=== PATIENT | male | born 1985 | race Two or more races ===

== ENCOUNTER 2017-09-02 13:01 | Emergency (ER) | payer SELFPAY ==
[2017-09-02 13:05] VITALS: BP 180/100; PULSE 110; TEMP 97.8; BMI 38.0
[2017-09-02] MEDS ORDERED: KETOROLAC TROMETHAMINE 60 MG/2 ML VIAL IM ONE (13:59)
[2017-09-02] MEDS ORDERED: KETOROLAC TROMETHAMINE 60 MG/2 ML VIAL ONE (14:00)
--- NOTE | 2017-09-02 14:05 | PDOC ---
History of Present Illness - General Chief Complaint: Toothache Stated Complaint: TOOTHACHE Time Seen by Provider: 09/02/17 13:50 History Source: Patient Exam Limitations: No Limitations - History of Present Illness Initial Comments: 09/02/17 14:00 Patient is a 31-year-old male, no significant medical history presents with left upper first molar pain since yesterday. Has been taking Aleve without resolved of symptoms. There is no swelling to the face, no difficulty swallowing. Past Medical History: [Denies]. Allergies: No known allergies Medications: [None] Family History: Non-contributory Social History: Denies smoking, alcohol use, or IVDU Review of Systems GENERAL/CONSTITUTIONAL: [No fever or chills. No weakness. No weight change.] HEAD, EYES, EARS, NOSE AND THROAT: [No change in vision. No ear pain or discharge. No sore throat. Left upper 1st molar pain. ] CARDIOVASCULAR: [No chest pain or shortness of breath.] RESPIRATORY: [No cough, wheezing, or hemoptysis.] GASTROINTESTINAL: [No nausea, vomiting, diarrhea or constipation. No rectal bleeding.] GENITOURINARY: [No dysuria, frequency, or change in urination.] MUSCULOSKELETAL: [No joint or muscle swelling or pain. No neck or back pain.] SKIN AND BREASTS: [No rash or easy bruising.] NEUROLOGIC: [No headache, vertigo, loss of consciousness, or loss of sensation.] PSYCHIATRIC: [No depression or anxiety.] ENDOCRINE: [No increased thirst. No abnormal weight change.] HEMATOLOGIC/LYMPHATIC: [No anemia, easy bleeding, or history of blood clots.] ALLERGIC/IMMUNOLOGIC: [No hives or skin allergy. No latex allergy.] Physical Exam: GENERAL: [The patient is awake, alert, and fully oriented, in no acute distress. ] HEAD: [Normal with no signs of trauma.] EYES: [Pupils equal, round and reactive to light, extraocular movements intact, sclera anicteric, conjunctiva clear.] ENT: [Ears normal, nares patent, oropharynx clear without exudates. Moist mucous membranes. No uvula deviation. Ther eis no erythema, no visible dental abcess to the left upper first molar. Pain to the area with no edema. ] NECK: [Normal range of motion, supple without lymphadenopathy, JVD, or masses.] LUNGS: [Breath sounds equal, clear to auscultation bilaterally. No wheezes, and no crackles.] NEUROLOGICAL: [Cranial nerves II through XII grossly intact. Normal speech, normal gait.] SKIN: [Warm, Dry, normal turgor, no rashes or lesions noted.] Past History - Past Medical History Allergies/Adverse Reactions: Allergies Allergy/AdvReac Type Severity Reaction Status Date / Time codeine [Codeine] Allergy Verified 09/02/17 13:02 Penicillins Allergy Verified 09/02/17 13:02 Home Medications: Ambulatory Orders Clindamycin HCl 300 mg PO TID #30 capsule 09/02/17 Ibuprofen [Motrin -] 600 mg PO TID #20 tablet 09/02/17 COPD: No Diabetes: Yes Psychiatric Problems: Yes Other medical history: FATTY LIVER - Suicide/Smoking/Psychosocial Hx Smoking Status: Yes Smoking History: Current every day smoker Have you smoked in the past 12 months: Yes Number of Cigarettes Smoked Daily: 10 Information on smoking cessation initiated: Yes 'Breaking Loose' booklet given: 09/02/17 Hx Alcohol Use: No Drug/Substance Use Hx: No Substance Use Type: None *Physical Exam - Vital Signs Last Vital Signs Temp Pulse Resp BP Pulse Ox 97.8 F 110 H 18 180/100 100 09/02/17 13:02 09/02/17 13:02 09/02/17 13:02 09/02/17 13:02 09/02/17 13:02 Medical Decision Making - Medical Decision Making 09/02/17 14:04 A/P: Patient with dental pain, Toradol given with good result will DC patient on Motrin and clindamycin follow-up with dental, instructions given. If any increased pain, fever, facial swelling, difficulty swallowing, or any other concerns return to ER *DC/Admit/Observation/Transfer Diagnosis at time of Disposition: Tooth pain - Discharge Dispostion Disposition: HOME Condition at time of disposition: Stable Admit: No - Prescriptions Prescriptions: Clindamycin HCl 300 mg PO TID #30 capsule Ibuprofen [Motrin -] 600 mg PO TID #20 tablet - Referrals - Patient Instructions Printed Discharge Instructions: DI for Dental Pain Additional Instructions: Warm salt water gargles. Follow up with dental tomorrow. Please call [phone] to find out walking hours and address for dental clinic - Post Discharge Activity Forms/Work/School Notes: Back to Work
== END 2017-09-02 14:28 | disposition home or self-care (01) ==
LOC: JERFT 13:01
PROC: 3E0233Z Introduction of Anti-inflammatory into Muscle, Percutaneous Approach (ICD-10-PCS; principal; 2017-09-02)
DX: K08.89 Other specified disorders of teeth and supporting structures (principal); E11.9 Type 2 diabetes mellitus without complications; F17.210 Nicotine dependence, cigarettes, uncomplicated
CPT/HCPCS: 99281-25

== ENCOUNTER 2017-09-10 11:14 | Inpatient (IN) | payer BC, OTHER ==
[~2017-09-10 11:14] MED LIST: VANCOMYCIN 2,000 MG in DEXTROSE 5%-WATER - 500 ML IVPB SCH
--- NOTE | 2017-09-10 11:23 | PDOC ---
History of Present Illness <Juan Jesus - Last Filed: 09/10/17 17:42> - General History Source: Patient Exam Limitations: No Limitations - History of Present Illness Initial Comments: 09/10/17 11:34 The patient is a 31 year old male with history of DM, cigarette smoking, who presents to the ED complaining an area of progressively worsening pain, swelling , and redness to his right groin over approximately 4-5 days. Right groin pain is nonradiating or migrating, with no alleviating or exacerbating factors. No fever or chills. No nausea, vomiting, or diarrhea. No testicular pain. No dysuria or hematuria. The patient does endorse shaving in the affected area. <Josie Hernandez - Last Filed: 09/10/17 17:54> - General Chief Complaint: Abscess Boil Stated Complaint: LEG INFECTION Time Seen by Provider: 09/10/17 11:23 Past History - Past Medical History COPD: No Diabetes: Yes Psychiatric Problems: Yes - Suicide/Smoking/Psychosocial Hx Smoking Status: Yes Smoking History: Current every day smoker Have you smoked in the past 12 months: Yes Number of Cigarettes Smoked Daily: 10 'Breaking Loose' booklet given: 09/02/17 Hx Alcohol Use: No Drug/Substance Use Hx: No Substance Use Type: None <Juan Jesus - Last Filed: 09/10/17 17:42> <Josie Hernandez - Last Filed: 09/10/17 17:54> - Past Medical History Allergies/Adverse Reactions: Allergies Allergy/AdvReac Type Severity Reaction Status Date / Time codeine [Codeine] Allergy Verified 09/10/17 11:19 Penicillins Allergy Verified 09/10/17 11:19 Home Medications: Ambulatory Orders Clindamycin HCl 300 mg PO TID #30 capsule 09/02/17 Ibuprofen [Motrin -] 600 mg PO TID #20 tablet 09/02/17 Review of Systems - Review of Systems Able to Perform ROS?: Yes Comments:: 09/10/17 11:36 CONSTITUTIONAL: No fever, no chills, no fatigue EYES: No visual changes ENT: No ear pain, no sore throat CARDIOVASCULAR: No chest pain, no palpitations RESPIRATORY: No cough, no SOB GI: No abdominal pain, no nausea, no vomiting, no constipation, no diarrhea GENITOURINARY: No dysuria, no frequency, no hematuria. No testicular pain. MUSCULOSKELETAL: No backpain, no joint pain, no myalgias SKIN: +Pain, swelling, and redness to right groin. No rash. NEURO: No headache <Amparo Hernandezce - Last Filed: 09/10/17 17:54> *Physical Exam - Vital Signs Last Vital Signs Temp Pulse Resp BP Pulse Ox 98.4 F 82 18 143/97 97 09/10/17 11:19 09/10/17 11:19 09/10/17 11:19 09/10/17 11:19 09/10/17 11:19 - Physical Exam Comments: 09/10/17 11:40 CONSTITUTIONAL: Well-appearing; morbidly obese; in no apparent distress HEAD: Normocephalic; atraumatic EYES: PERRL; EOM intact ENMT: External appears normal; normal oropharynx NECK: Supple; non-tender; no cervical lymphadenopathy CARD: Normal S1, S2; no murmurs, rubs, or gallops RESP: Normal chest excursion with respiration; breath sounds clear and equal bilaterally; no wheezes, rhonchi, or rales ABD: Soft, non-distended; non-tender; no palpable organomegaly, no palpable hernias EXT: Normal ROM in all four extremities; non-tender to palpation; distal pulses intact SKIN: Approximately 8 cm x 10 cm area of erythema and induration to the medial aspect of proximal right thigh with 2 cm area of fluctuance immediately above inguinal vessels. No evidence of testicular or perineal involvement. NEURO: No focal neurological deficiencies. <Josie Hernandez - Last Filed: 09/10/17 17:54> ED Treatment Course - LABORATORY CBC & Chemistry Diagram: 09/10/17 12:56 09/10/17 13:15 <Juan Jesus - Last Filed: 09/10/17 17:42> - LABORATORY CBC & Chemistry Diagram: 09/10/17 12:56 09/10/17 13:15 - RADIOLOGY Radiograph Interpretation: 09/10/17 17:52 CT of RLE with contrast, read and reviewed by Dr. Madsen. Within the right upper thigh medially adjacent to the inferior aspect of the inguinal fold a nonspecific approximately 2.5 cm x 2.4 cm x 1.7 cm subcutaneous heterogenous low-attenuation is noted which could represent an abscess. <Josie Hernandez - Last Filed: 09/10/17 17:54> Medical Decision Making - Medical Decision Making 09/10/17 17:33 Patient is a 31-year-old male with poorly controlled diabetes who presents to the ER with significant cellulitis and an soft tissue abscess of the right proximal thigh. Extremity ultrasound shows a 3 x 2 x 3 cm fluid collection likely representing an abscess. CT of the right lower extremity reveals inflammatory changes within the soft tissue without evidence of air. I do not suspect forniers or necrotizing fasciitis. Patient received IV antibiotics and IND has been performed at bedside byDr. Mcpherson. pt alos recieved sq insulin. will admit for iv abx, glycemic control <Juan Jesus - Last Filed: 09/10/17 17:42> *DC/Admit/Observation/Transfer - Discharge Dispostion Admit: Yes - Attestations Physician Attestion: 09/10/17 17:33 The documentation was prepared by the scribe under my direct supervision. I have reviewed the documentation which correctly represents the findings, medical decision-making and critical action taken by me. <Juan Jesus - Last Filed: 09/10/17 17:42> - Attestations Scribe Attestion: 09/10/17 11:43 Documentation prepared by Josie Hernandez, acting as medical records tech for Juan Jesus MD. <Josie Hernandez - Last Filed: 09/10/17 17:54> Diagnosis at time of Disposition: Abscess of right thigh, Hyperglycemia Cellulitis Qualifiers: Site of cellulitis: other site Qualified Code(s): L03.818 - Cellulitis of other sites - Discharge Dispostion Condition at time of disposition: Fair
[2017-09-10] MEDS ORDERED: CLINDAMYCIN 600MG PREMIX IVPB 600 MG/50 ML BAG IVPB ONE ×2 (13:19→13:45)
[2017-09-10 13:37] LABS: BASO % 0.2 % (0-2.0); EOS % 1.4 % (0-4.5); HEMATOCRIT 44.4 % (35.4-49); HEMOGLOBIN 14.6 GM/dL (11.7-16.9); MCH 26.7 pg (25.7-33.7); MCHC 32.8 g/dl (32.0-35.9); MEAN CELL VOLUME 81.3 fl (80-96); MEAN PLT VOLUME 8.4 fl (7.5-11.1); MONO % 8.3 % (3.8-10.2); NEUT % 66.1 % (42.8-82.8); PLATELET COUNT 223 K/MM3 (134-434); RBC 5.46 M/mm3 (4.00-5.60); RDW 13.6 % (11.9-15.9); WHITE BLOOD COUNT 7.8 K/mm3 (4.0-10.0)
[2017-09-10 13:42] LABS: INR 0.91 (0.82-1.09); PROTHROMBIN TIME (PATIENT) 10.3 SEC (9.98-11.88)
[2017-09-10 13:46] LABS: ALBUMIN 3.5 g/dl (3.4-5.0); ANION GAP 12 (8-16); BLOOD UREA NITROGEN 9 mg/dL (7-18); CALCIUM 8.8 mg/dL (8.5-10.1); CHLORIDE 101 mmol/L (98-107); CO2 24 mmol/L (21-32); CREATININE 0.8 mg/dL (0.7-1.3); POTASSIUM 4.4 mmol/L (3.5-5.1); SGOT/AST 16 U/L (15-37); SGPT/ALT 52 U/L (12-78); SODIUM 137 mmol/L (136-145)
[2017-09-10 13:48] LABS: ALK PHOS 128 U/L (45-117); BILIRUBIN,TOTAL 0.6 mg/dL (0.2-1.0); TOT PROT 7.5 g/dl (6.4-8.2)
[2017-09-10 13:53] LABS: GLUCOSE,RANDOM 324 mg/dL (74-106)
[2017-09-10] MEDS ORDERED: traMADol HCL 50 MG TABLET PO ONE (14:54)
[2017-09-10] MEDS ORDERED: traMADol HCL 50 MG TABLET ONE (15:06)
[2017-09-10] MEDS ORDERED: INSULIN REGULAR HUMAN 100 UNITS/ML *VIAL SQ ONE (15:31)
[2017-09-10] MEDS ORDERED: INSULIN REGULAR HUMAN 100 UNITS/ML *VIAL ONE (16:24)
[2017-09-10] MEDS ORDERED: VANCOMYCIN 1 GRAM (PRE-DOCKED) 2,000 MG/500 ML BAG IVPB ONE (16:52)
[2017-09-10] MEDS ORDERED: LIDOCAINE 1%/EPI 1:100000 (20 ML MULTI DOSE VIAL) ONE (17:12)
[2017-09-10] MEDS ORDERED: ACETAMINOPHEN 325 MG TABLET (FP) PO PRN ×2 (17:48→19:18)
[2017-09-10] MEDS ORDERED: VANCOMYCIN 1,000 MG in DEXTROSE 5%-WATER - 250 ML IVPB ONE ×2 (18:09→18:10)
--- NOTE | 2017-09-10 18:21 | HP ---
CHIEF COMPLAINT: R groin swelling and pain PCP: none HISTORY OF PRESENT ILLNESS: 31M w/ hx of pilonidal abscess (2009), DM, morbid obesity, ?bipolar/depression, fatty liver dz, and a lung nodule, presenting with one week of right groin pain and swelling. Pt denies trauma to the area preceding his symptoms. He states that he shaved the area weeks ago. He reports that his symptoms progressed, and he developed surrounding erythema which prompted him to go to the ED. He denies fevers, chills, recent travel, sick contacts, n/v/d/c, dysuria, testicular pain , LE weakness, and numbness. Of note, pt presented to the hospital one week ago for severe left upper molar pain. He was given prescriptions for motrin and clindamycin and told to f/u with a dentist. Pt states that he only filled his motrin prescription, but not the clindamycin and never went to the dentist. He reports that his tooth pain has since resolved on its own. Pt reports that when he was in [facility] 6 months, a lung "nodule" was picked up, and he was told to follow it over time. ER course was notable for: (1) CT findings (2) CBC Recent Travel: none PAST MEDICAL HISTORY: pilonidal abscess (2010), DM, morbid obesity, ?bipolar/depression, fatty liver dz, and a lung nodule PAST SURGICAL HISTORY: none Social History: Smokin pack year hx Alcohol: former everyday drinker, now drinks socially on weekends Drugs: cannabis every few days Family History: Allergies codeine [Codeine] Allergy (Verified 09/10/17 11:19) Penicillins Allergy (Verified 09/10/17 11:19) HOME MEDICATIONS: Home Medications Medication Instructions Recorded Clindamycin HCl 300 mg PO TID #30 capsule 09/02/17 Ibuprofen [Motrin -] 600 mg PO TID #20 tablet 09/02/17 REVIEW OF SYSTEMS CONSTITUTIONAL: Absent: fever, chills, diaphoresis, generalized weakness, malaise, loss of appetite, weight change HEENT: Absent: rhinorrhea, nasal congestion, throat pain, throat swelling, difficulty swallowing, mouth swelling, ear pain, eye pain, visual changes CARDIOVASCULAR: Absent: chest pain, syncope, palpitations, irregular heart rate, lightheadedness , peripheral edema RESPIRATORY: Absent: cough, shortness of breath, dyspnea with exertion, orthopnea, wheezing, stridor, hemoptysis GASTROINTESTINAL: Absent: abdominal pain, abdominal distension, nausea, vomiting, diarrhea, constipation, melena, hematochezia GENITOURINARY: Absent: dysuria, frequency, urgency, hesitancy, hematuria, flank pain, genital pain MUSCULOSKELETAL: Absent: myalgia, arthralgia, joint swelling, back pain, neck pain SKIN: Absent: rash, itching, pallor Present: right thigh swelling, pain, and erythema HEMATOLOGIC/IMMUNOLOGIC: Absent: easy bleeding, easy bruising, lymphadenopathy, frequent infections ENDOCRINE: Absent: unexplained weight gain, unexplained weight loss, heat intolerance, cold intolerance NEUROLOGIC: Absent: headache, focal weakness or paresthesias, dizziness, unsteady gait, seizure, mental status changes, bladder or bowel incontinence PSYCHIATRIC: Absent: anxiety, depression, suicidal or homicidal ideation, hallucinations. PHYSICAL EXAMINATION Vital Signs - 24 hr 09/10/17 11:19 Temperature 98.4 F Pulse Rate 82 Respiratory 18 Rate Blood Pressure 143/97 O2 Sat by Pulse 97 Oximetry (%) GENERAL: middle aged male, awake, alert, and fully oriented, in no acute distress. HEENT: NC, AT, no swelling or erythema in mouth NECK: Normal range of motion, supple without lymphadenopathy, JVD, or masses. LUNGS: Breath sounds equal, clear to auscultation bilaterally. No wheezes, and no crackles. No accessory muscle use. HEART: Regular rate and rhythm, normal S1 and S2 without murmur, rub or gallop. ABDOMEN:obese, soft, nontender, not distended, normoactive bowel sounds, no guarding, no rebound, no masses. No hepatomegaly or splenomegaly. MUSCULOSKELETAL: Normal range of motion at all joints. No bony deformities or tenderness. No CVA tenderness. NEUROLOGICAL: Cranial nerves II-XII intact. Normal speech. Normal gait. SKIN: right medial upper thigh abscess with surrounding erythema, minimally tender to palpation Laboratory Results - last 24 hr 09/10/17 09/10/17 09/10/17 12:56 12:56 13:15 WBC 7.8 RBC 5.46 Hgb 14.6 Hct 44.4 MCV 81.3 MCH 26.7 MCHC 32.8 RDW 13.6 D Plt Count 223 MPV 8.4 Neutrophils % 66.1 Lymphocytes % 24.0 D Monocytes % 8.3 Eosinophils % 1.4 Basophils % 0.2 PT with INR 10.30 INR 0.91 Sodium 137 Potassium 4.4 Chloride 101 Carbon Dioxide 24 Anion Gap 12 BUN 9 D Creatinine 0.8 Creat Clearance w eGFR > 60 Random Glucose 324 H* D Calcium 8.8 Total Bilirubin 0.6 D AST 16 D ALT 52 D Alkaline Phosphatase 128 H D Total Protein 7.5 Albumin 3.5 US extremity: no pseudoaneurysm. complex subcutaneous mass in right thigh CT LE: 2.5 x 2.4 x 1.7 subcutaneous abscess ASSESSMENT/PLAN: 31M w/ hx of pilonidal abscess (2009), DM, morbid obesity, ?bipolar/depression, fatty liver dz, and a lung nodule presenting with R groin abscess and cellulitis , admitted for IV abx. #R groin abscess and cellulitis -no fever, no leukocytosis -IV clindamycin -surgery on board, s/p I&D, f/u recs -monitor for fever or leukocytosis -pain control with APAP, motrin, and tramadol -f/u Bcx, Wcx #DM -f/u a1c, lipid panel, TSH -ISS -BGM ACHS #morbid obesity -diabetic diet -RD consult #psych hx -f/u outpt #cigarette use -smoking cessation counseled -nicotine patch #FEN/ppx -po fluids -electrolytes wnl -diabetic diet -no GI ppx indicated -lovenox Case discussed with attending, Dr. Bhakta. -Zane De La Paz MD PGY1 Visit type - Emergency Visit Emergency Visit: Yes ED Registration Date: 09/10/17 Care time: The patient presented to the Emergency Department on the above date and was hospitalized for further evaluation of their emergent condition. - New Patient This patient is new to me today: Yes Date on this admission: 09/10/17 - Critical Care Critical Care patient: No Hospitalist Screening - Colonoscopy Questionnaire Colonoscopy Questionnaire: Colonoscopy Questionnaire - Patient: 50 - 75 years old and never had a screening colonoscopy: No History of colon or rectal polyps, or CA: No History of IBD, Crohn's disease or UC: No History of abdominal radiation therapy as a child: No - Relative: 1 with colon or rectal CA, or polyps at age 60 or younger: No Colon or rectal CA diagnosed at age 45 or younger: No Multiple relatives with colon or rectal CA: No - Outcome: Screening Result: Negative Screen
--- NOTE | 2017-09-10 18:26 | HP ---
CHIEF COMPLAINT: leg abscess PCP: None HISTORY OF PRESENT ILLNESS: The pt is a 31 year old male with a PMH of diabetes mellitus, bipolar disorder, depression, fatty liver who presented today complaining of pain and abscess in right groin that got worse over the past week. The pain was so significant that he decided to come to ED today. He denies injury, sick contacts. The pt denies fever, chills. Last week he visited our ED for tooth pain and was given Clindamycin but he never took it. He denies skin infections in the past. ER course was notable for: (1)Ct lower extremity (2)Clindamycin, Vancomycin, Levaquin (3)no fever PAST MEDICAL HISTORY: DM, bipolar disease, depression PAST SURGICAL HISTORY: None Social History: Smokin/2 pack for 20 years Alcohol:on weekends Drugs: marijuana every 3 days Family History: father: DMII, colon Ca mother: heart disease, DM Allergies codeine [Codeine] Allergy (Verified 09/10/17 11:19) Penicillins Allergy (Verified 09/10/17 11:19) HOME MEDICATIONS: Home Medications Medication Instructions Recorded Clindamycin HCl 300 mg PO TID #30 capsule 09/02/17 Ibuprofen [Motrin -] 600 mg PO TID #20 tablet 09/02/17 REVIEW OF SYSTEMS CONSTITUTIONAL: Absent: fever, chills, diaphoresis, generalized weakness, malaise, loss of appetite, weight change HEENT: Absent: rhinorrhea, nasal congestion, throat pain, throat swelling, difficulty swallowing, CARDIOVASCULAR: Absent: chest pain, syncope, palpitations, irregular heart rate, lightheadedness , peripheral edema RESPIRATORY: Absent: cough, shortness of breath, dyspnea with exertion, orthopnea, wheezing GASTROINTESTINAL: Absent: abdominal pain, abdominal distension, nausea, vomiting, diarrhea, constipation, GENITOURINARY: Absent: dysuria, frequency, urgency, hesitancy, hematuria, flank pain, genital pain MUSCULOSKELETAL: Absent: myalgia, arthralgia, joint swelling, back pain, neck pain SKIN:rash in groin Absent:, itching, pallor ENDOCRINE: Absent: unexplained weight gain, unexplained weight loss, heat intolerance, cold intolerance NEUROLOGIC: Absent: headache, focal weakness or paresthesias, dizziness, unsteady gait, PSYCHIATRIC: Absent: anxiety, depression PHYSICAL EXAMINATION Vital Signs - 24 hr 09/10/17 11:19 Temperature 98.4 F Pulse Rate 82 Respiratory 18 Rate Blood Pressure 143/97 O2 Sat by Pulse 97 Oximetry (%) GENERAL: Awake, alert, and fully oriented, in no acute distress. HEAD: Normal with no signs of trauma. EYES: Pupils equal, round and reactive to light, extraocular movements intact, sclera anicteric, conjunctiva clear. EARS, NOSE, THROAT: Ears normal, nares patent, oropharynx clear without exudates. Moist mucous membranes. NECK: Normal range of motion, supple without lymphadenopathy, JVD, or masses. LUNGS: Breath sounds equal, clear to auscultation bilaterally. No wheezes, and no crackles. No accessory muscle use. HEART: Regular rate and rhythm, normal S1 and S2 without murmur, rub or gallop. ABDOMEN: Obese, soft, nontender, not distended, normoactive bowel sounds, no guarding, no rebound, no masses. No hepatomegaly or splenomegaly. MUSCULOSKELETAL: Normal range of motion at all joints. No bony deformities or tenderness. UPPER EXTREMITIES: 2+ pulses, warm. No cyanosis. No clubbing. No peripheral edema. LOWER EXTREMITIES: 2+ pulses, warm. No calf tenderness. No peripheral edema. NEUROLOGICAL: Normal speech, no facial asymmetry. Gait not observed. PSYCHIATRIC: Cooperative. Good eye contact. Appropriate mood and affect. SKIN: Warm, dry, rash in medial side of right groin, 5 cm in diameter, no fluctuation, s/p drainage, dressing applied Laboratory Results - last 24 hr 09/10/17 09/10/17 09/10/17 12:56 12:56 13:15 WBC 7.8 RBC 5.46 Hgb 14.6 Hct 44.4 MCV 81.3 MCH 26.7 MCHC 32.8 RDW 13.6 D Plt Count 223 MPV 8.4 Neutrophils % 66.1 Lymphocytes % 24.0 D Monocytes % 8.3 Eosinophils % 1.4 Basophils % 0.2 PT with INR 10.30 INR 0.91 Sodium 137 Potassium 4.4 Chloride 101 Carbon Dioxide 24 Anion Gap 12 BUN 9 D Creatinine 0.8 Creat Clearance w eGFR > 60 Random Glucose 324 H* D Calcium 8.8 Total Bilirubin 0.6 D AST 16 D ALT 52 D Alkaline Phosphatase 128 H D Total Protein 7.5 Albumin 3.5 ASSESSMENT/PLAN: The pt is a 31 year old male with a PMH of diabetes mellitus, bipolar disorder, depression, fatty liver who presented today complaining of pain and abscess in right groin that got worse over the past week. He is admitted for cellulitis and abscess. Abscess in right groin with cellulitis: -s/p drainage in ED by Dr Mcpherson in emergency room -f/u blood cultures and wound cultures -Levaquin/Vanco and Clinda given in ED, will continue Clindamycin IV 600 mg Q6H -wound care Diabetes mellitus: -ISS ACHS -BGM ACHS -dietary consult H/o of bipolar disorder and depression: not on meds Fatty liver: -avoid toxic subst/alcohol -monitor LFTs Morbid obesity: -counseling Disposition: med surg Full note to follow Visit type - Emergency Visit Emergency Visit: Yes ED Registration Date: 09/10/17 Care time: The patient presented to the Emergency Department on the above date and was hospitalized for further evaluation of their emergent condition. - New Patient This patient is new to me today: Yes Date on this admission: 09/10/17 - Critical Care Critical Care patient: No
[2017-09-10] MEDS ORDERED: ACETAMINOPHEN 500 MG TABLET (FP) PO ONE (18:39)
--- NOTE | 2017-09-10 18:46 | PN ---
Teaching Attending Note Name of Resident: Zane De La Paz ATTENDING PHYSICIAN STATEMENT I saw and evaluated the patient. I reviewed the resident's note and discussed the case with the resident. I agree with the resident's findings and plan as documented. SUBJECTIVE:31 yo M with PMH DM, HTN and bipolar d/o presenting to the ER with R groin abscess. states he get frequent hard bumps in his groin which he feels in the shower which he typically squeezes to prevent from worsening. He felt the one in his R groin the other day but was unable to squeeze anything and when he looked at it in the mirror today and saw the size came to the ER. Had buttock abscess in the past requiring I&D. has not been complaint with his medications due to insurance issues. has went on strict diet and lost 100 lbs over the past year however due to personal stressors started eating poorly again and gained about half back. is not complaint with checking sugars due to lack of finances but when he checks it is low 100's. has not taken any medications for several months. came to the ER last week for toothache was given clindamycin and told to follow up with dentist which he has been unable to do. denies CP,SOB, fever, chills, N/V/C/D OBJECTIVE: Last Vital Signs Temp Pulse Resp BP Pulse Ox 98.4 F 82 18 143/97 97 09/10/17 11:19 09/10/17 11:19 09/10/17 11:19 09/10/17 11:19 09/10/17 11:19 General NAD CV S1 S2 RRR no murmur/rub/gallop Lungs CTA B/L no wheezing/rales/rhonchi Abdomen soft NT/ND obese Groin R side 2 cm abscess with fluctuance erythema +tender. with 5 cm surrounding erythema ASSESSMENT AND PLAN: 31 yo M with PMH DM, HTN and bipolar d/o presenting to the ER with R groin abscess. 1. R groin abcess- medicine admission. I&D by gen surgery in the ER. will need packing. received vanco/clinda/levaquin. will cont with clinda and levaquin. will hold on unasyn as pt has PCN allergy however pt states he thinks his reaction (lip swelling) was due to codeine. will f/u Cx. pain control 2. DM- uncontrolled due to non complaince due to financial reasons. check A1c. Iss, BGM. was taking combo pill which he can not afford. 3. HTN- controlled here. will monitor for now if elevates will consider starting medication 4. Morbid obesity- BMI 36.9. counselled on lifestyle changes, has been able to loose significant weight with dietary changes. encouraged he can do it again. 5. bipolar disorder- refuses to take medication at this time. no signs of manic episode 6. DVT ppx- lovenox
[2017-09-10] MEDS ORDERED: ACETAMINOPHEN 325 MG TABLET (FP) ONE (18:54)
--- NOTE | 2017-09-10 18:58 | CONSULT ---
Consult Consult Specialty:: General Surgery Referred by:: Dr. Jesus Reason for Consultation:: R groin abscess - History of Present Illness Chief Complaint: right groin swelling, redness, tenderness/pain History of Present Illness: 31yo obese diabetic M (not currently on any meds) with h/o HTN (not on meds for long time), bipolar d/o (no meds or tx currently), and previous I&D of an abscess on his lower back "between the cheeks," presents with right groin pain, swelling and redness, increasing over last 5-7 days. He was seen 8d ago in ER for left upper molar pain, and given referral to dental (he was unable to get through to make appt) and Rx for ibuprofen 600mg (which he got) and Clinda 300mg tid (which he could not afford). His tooth is till bothering him some, but he has not been able to follow up without insurance. Then, he noticed a fairly typical small nodular cyst/bump on his right groin, which he could feel in the shower, but was not going away or coming to a head. He put toothpaste on it to try and get it to do so, so it could drain, but it only got bigger and redder. He has shaved the area in the past, but not for about 3 weeks. He sometimes gets small bumps that occasionally he can squeeze or drain himself, which then go away, but as this got reddened and the redness spread, he decided to come to ER. He did not take anything for pain. Last po was 2pm in the ER, and he is hungry. No chills, fever, urinary complaints, constipation or diarrhea , n/v. It has not drained anything. It is very painful and tender. Last time he checked his sugar at home over a week ago, it was normal/in the lower hundreds/1 -teens to twenties range. He has recently started a new job, but does not have insurance or a primary physician at this time. He used to see Dr. Tom Chery, and followed with a psychiatrist in [place], but takes no medications daily now, and has not seen a doctor for a while. In the ER, he is afebrile, with wbc 7.8, glucose 324. Ultrasound of the right groin area showed no pseudoaneurysm and normal femoral vessels, but a subcutaneous collection consistent with probably abscess. Surgery is asked to assess for possible incision and drainage. ER has started IV antibiotics. - History Source History Provided By: Patient Limitations to Obtaining History: No Limitations - Past Medical History Cardio/Vascular: Yes: HTN Psych: Yes: Bipolar (no longer taking meds or seeing psych regularly) Endocrine: Yes: Diabetes Mellitus (not currently taking meds) - Past Surgical History Additional Surgical History: I&D abscess sacral area - Alcohol/Substance Use Hx Alcohol Use: Yes (about weekly, ~6 drinks/sitting) History of Substance Use: reports: Marijuana (every 2-3 days) - Smoking History Smoking history: Current every day smoker Have you smoked in the past 12 months: Yes Aproximately how many cigarettes per day: 10 (1/2-1ppd x 10yrs) - Social History ADL: Independent Occupation: salesman Home Medications - Allergies Allergies/Adverse Reactions: Allergies Allergy/AdvReac Type Severity Reaction Status Date / Time codeine [Codeine] Allergy Verified 09/10/17 11:19 Penicillins Allergy Verified 09/10/17 11:19 - Home Medications Home Medications: Ambulatory Orders Clindamycin HCl 300 mg PO TID #30 capsule 09/02/17 Ibuprofen [Motrin -] 600 mg PO TID #20 tablet 09/02/17 Home Medications (free text): Pt states he is NOT allergic to PCN - has had it before. Believes only allergic to codeine with lip/mouth swelling. Thinks he used Tramadol ok before. Pt never had Clinda Rx filled. Not really using ibuprofen either. No regular home meds at this time. Used to take Jentaduetto ( linagliptin/metformin) for DM few yrs ago. Used to take meds for BP and bipolar d/o, but stopped seeing psych and PMD when lost insurance. Family Disease History - Family Disease History Family Disease History: Other: Mother (pyoderma gangrenosum) Review of Systems - Review of Systems Constitutional: denies: Chills, Fever Eyes: reports: Blurred Vision (this morning experienced seeing a "fog" like it was "cloudy" in the room after showering, then it went away), Other (uses glasses for distance) HENT: reports: Toothache (left 1st molar (seen 8d ago in ER for this, has not f/ u with dental yet)). denies: Difficult Swallowing, Nasal Congestion, Throat Pain Neck: denies: Swollen Glands, Tenderness Cardiovascular: denies: Chest Pain, Palpitations Respiratory: denies: Cough, SOB Gastrointestinal: denies: Abdominal Pain, Constipation, Diarrhea, Nausea, Vomiting Genitourinary: denies: Burning, Dysuria, Testicular Pain, Testicular Swelling Musculoskeletal: reports: Other (hurt his right foot couple years ago at work, never got to see doctor for it). denies: Back Pain, Joint Pain, Muscle Pain Integumentary: reports: Erythema (R groin with hpi), Lump (gets occasional flares of cysts/lumps in perineal area, had one under arm once; R groin with hpi ) Neurological: denies: Dizziness, Headache, Unsteady Gait Endocrine: denies: Unexplained Weight Gain, Unexplained Weight Loss Psychiatric: reports: Anxiety (hx of, denies current problems), Depression (hx of, denies current problems) Physical Exam Vital Signs: Vital Signs Temperature 98.4 F 09/10/17 11:19 Pulse Rate 82 09/10/17 11:19 Respiratory Rate 18 09/10/17 11:19 Blood Pressure 143/97 09/10/17 11:19 O2 Sat by Pulse Oximetry (%) 97 09/10/17 11:19 Constitutional: Yes: No Distress, Calm, Obese Eyes: Yes: Conjunctiva Clear, EOM Intact HENT: Yes: Atraumatic, Normocephalic Neck: Yes: Supple, Trachea Midline Cardiovascular: Yes: Regular Rate and Rhythm. No: Murmur Respiratory: Yes: Regular, CTA Bilaterally Gastrointestinal: Yes: Normal Bowel Sounds, Soft, Abdomen, Obese. No: Tenderness ...Rectal Exam: Yes: Deferred Renal/: No: CVA Tenderness - Left, CVA Tenderness - Right, Scrotal Edema Musculoskeletal: No: Joint Stiffness, Joint Swelling Extremities: No: Cool, Cyanosis Edema: No Peripheral Pulses WNL: Yes Integumentary: Yes: Erythema (R groin/upper-inner thigh, border marked with pen ; minimal extension past inguinoscrotal crease/fold,), Other (away from R groin lesion - few small scattered nodular cysts noted in bilateral perineal area, none open or draining, no others with erythema or cellulitis) Wound/Incision: Yes: Open to air, Reddened (R groin), Other (R groin with fluctuant swelling, tender, reddened, epidermal erosion but no punctum or drainage, locally indurated, surrounding erythema extending onto upper/inner thigh but minimally across inguinoscrotal fold; area moist with sweat). No: Draining Neurological: Yes: Alert, Oriented. No: Unsteady Gait Psychiatric: Yes: Alert, Oriented Labs: CBC, BMP 09/10/17 12:56 09/10/17 13:15 INR, PTT INR 0.91 (0.82-1.09) 09/10/17 12:56 Imaging - Results Cat Scan: Image Reviewed (I personally reviewed images, showing small subcutaneous collection at right groin, above femoral vessels, but with clear tissue plane between the two; with changes of cellulitis locally and in subcutaneous tissues extending a bit inferiorly) Ultrasound: Report Reviewed (3 x 3 x 2 subcutaneous collection not adjacent to femoral vessels, no pseudoaneurysm, likely abscess), Image Reviewed Problem List - Problems (1) Abscess of right groin Assessment/Plan: right groin abscess with cellulitis admitted to medicine for IV antibiotics, glucose control ER started with Clinda 600mg, Vanco 2g, Levofloxacin 750mg ID to continue abx f/u culture results Pain meds prn - recommend tylenol/ibuprofen alternating, with tramadol for breakthrough and dressing changes Discussed with patient risks, benefits and alternatives of incision and drainage of right groin abscess, including but not limited to bleeding, infection, injury to nearby vessels, recurrence. Patient agreeable to procedure in ER under local anesthesia. I&D performed after hair removed from region - see separate procedure note, culture of pus sent to micro Pt tolerated well Will continue daily dressing changes with 1/2" iodoform packing Will need VNS arranged to continue daily packing changes on discharge, as patient cannot visualize area easily himself to do dressings. Instructions will be in discharge plan. Await cx results to guide abx treatment/complete course at d/c home. Thank you for the opportunity to participate in the care of this patient. Code(s): L02.214 - CUTANEOUS ABSCESS OF GROIN (2) Cellulitis of right groin Assessment/Plan: borders marked with pen, will follow for resolution IV antibiotics per ID, f/u cx result Code(s): L03.314 - CELLULITIS OF GROIN (3) Diabetes mellitus with hyperglycemia, without long-term current use of insulin Assessment/Plan: primary team to manage pt will need PMD referral for follow up on d/c SW/CM for lack of insurance he states he has a glucometer but not enough strips to check sugars daily Hb A1C pending Code(s): E11.65 - TYPE 2 DIABETES MELLITUS WITH HYPERGLYCEMIA Qualifiers: Diabetes mellitus type: type 2 Qualified Code(s): E11.65 - Type 2 diabetes mellitus with hyperglycemia (4) Tobacco dependence due to cigarettes Assessment/Plan: counseled to quit Code(s): F17.210 - NICOTINE DEPENDENCE, CIGARETTES, UNCOMPLICATED (5) Marijuana abuse Assessment/Plan: counseled to quit Code(s): F12.10 - CANNABIS ABUSE, UNCOMPLICATED (6) Bipolar disorder Assessment/Plan: advised patient to follow up with psychiatry outpatient after d/c discussed that this diagnosis does not generally just "go away" and may need ongoing evaluation and/or treatment Code(s): F31.9 - BIPOLAR DISORDER, UNSPECIFIED Qualifiers: Active/Remission status: in remission of unspecified degree Qualified Code( s): F31.70 - Bipolar disorder, currently in remission, most recent episode unspecified
--- NOTE | 2017-09-10 19:52 | PROC ---
Incision and Drainage Indication/Location: right groin abscess Risks and Benefits Explained: Yes Consent on Chart: No (verbal consent obtained) Betadine cleansed: Yes Anesthesia: 1% Lidocaine w/ Epi (17ml) Blade Size: 15 Drainage: pus cultured; also thin, old bloody drainage Irrigated with Normal Saline: No (cavity manually probed for loculations, cleaned out with gauze) Iodinated Packin/2 in Sterile Dressing Applied: Yes - Remarks Remarks: hair removed prior to prep from surrounding area; small ellipse of skin removed to delay wound closure, facilitate packing; covered with gauze and tape after packing
[2017-09-10] MEDS: traMADol HCL 50 MG TABLET PO PRN (22:49)
[2017-09-10] MEDS: CLINDAMYCIN 600MG PREMIX IVPB 600 MG/50 ML BAG IVPB SCH (22:49)
[2017-09-10] MEDS: INSULIN SLIDING SCALE (NOVOLOG) 1 VIAL SQ SCH (22:50)
[2017-09-11 00:10] VITALS: BMI 41.7
[2017-09-11] MEDS: CLINDAMYCIN 600MG PREMIX IVPB 600 MG/50 ML BAG IVPB SCH ×4 (04:08→21:12)
[2017-09-11] MEDS: IBUPROFEN 600 MG TABLET (FP) PO PRN (05:14)
[2017-09-11] MEDS: INSULIN SLIDING SCALE (NOVOLOG) 1 VIAL SQ SCH ×4 (06:27→21:46)
[2017-09-11 08:31] LABS: BASO % 0.4 % (0-2.0); EOS % 1.5 % (0-4.5); HEMATOCRIT 42.7 % (35.4-49); HEMOGLOBIN 14.2 GM/dL (11.7-16.9); LYMPH % 25.3 % (8-40); MCHC 33.2 g/dl (32.0-35.9); MEAN CELL VOLUME 81.6 fl (80-96); MEAN PLT VOLUME 8.5 fl (7.5-11.1); MONO % 8.8 % (3.8-10.2); PLATELET COUNT 203 K/MM3 (134-434); RBC 5.23 M/mm3 (4.00-5.60); WHITE BLOOD COUNT 7.3 K/mm3 (4.0-10.0)
[2017-09-11 09:02] LABS: ALBUMIN 3.1 g/dl (3.4-5.0); ANION GAP 9 (8-16); BILIRUBIN,TOTAL 0.6 mg/dL (0.2-1.0); BLOOD UREA NITROGEN 12 mg/dL (7-18); CALCIUM 8.1 mg/dL (8.5-10.1); CHLORIDE 104 mmol/L (98-107); CO2 24 mmol/L (21-32); CREATININE 0.7 mg/dL (0.7-1.3); GLUCOSE,RANDOM 258 mg/dL (74-106); MAGNESIUM 1.8 mg/dL (1.8-2.4); PHOSPHOROUS 3.7 mg/dL (2.5-4.9); POTASSIUM 4.1 mmol/L (3.5-5.1); SGOT/AST 14 U/L (15-37); SGPT/ALT 42 U/L (12-78); SODIUM 137 mmol/L (136-145); TOT PROT 6.7 g/dl (6.4-8.2)
[2017-09-11 09:03] LABS: ALK PHOS 104 U/L (45-117)
[2017-09-11] MEDS: traMADol HCL 50 MG TABLET PO PRN (09:06)
[2017-09-11] MEDS: NICOTINE 14 MG/24 HOURS TOPICAL PATCH TD SCH (09:36)
[2017-09-11] MEDS: ENOXAPARIN NA (PORCINE) 40 MG/0.4 ML DISP.SYRIN SQ SCH (09:36)
--- NOTE | 2017-09-11 11:16 | PN ---
Progress Note (short form) - Note Progress Note: Pt s/p I&D R groin abscess, with uncontrolled diabetes type 2. On Clindamycin per hospitalist team. Getting pain medicine prn, had Tramadol just over an hour ago. Pain is manageable, also using cold pack over area with good effect. Tolerating diabetic diet. No specific complaints. HbA1C 11. GS/Cx from wound still pending. Got Levofloxacin at 6pm last night. Vital Signs Period Temp Pulse Resp BP Sys/Holder Pulse Ox Last 24 Hr 97.9 F-98.9 F 71-92 18-18 136-146/78-97 97-100 PE: A&O obese, no distress no edema or cyanosis R groin wound with dressing soaked with serosang drainage removed - packing removed from wound cavity clean, red base, slight oozing of blood, no purulence repacked with 1/2" iodoform surrounding erythema still about at ink border but faded to faint pink area is tender covered with gauze and tape CBC, BMP 09/11/17 07:47 09/11/17 07:47 Micro still pending A/P: POD1 s/p I&D R groin abscess in uncontrolled diabetic wound trolley cleaner, cellulitis improving on antibiotics needs full spectrum abx coverage including gram negatives recommend Clinda 900mg q8H and Levo or Cipro to cover for diabetic/ polymicrobial infection discussed with Dr. De La Paz of primary team recommend ID consult pt advised to take tylenol and ibuprofen alternating, use tramadol for breakthrough and before dressing changes only will need VNS on discharge to continue daily wound care with packing changes - see d/c plan for details may be able to use saline-dampened 2x2 gauze instead of packing ribbon by the time of discharge will update as needed continue daily dressings f/u culture Problem List - Problems (1) Abscess of right groin Code(s): L02.214 - CUTANEOUS ABSCESS OF GROIN (2) Cellulitis of right groin Code(s): L03.314 - CELLULITIS OF GROIN (3) Diabetes mellitus with hyperglycemia, without long-term current use of insulin Code(s): E11.65 - TYPE 2 DIABETES MELLITUS WITH HYPERGLYCEMIA Qualifiers: Diabetes mellitus type: type 2 Qualified Code(s): E11.65 - Type 2 diabetes mellitus with hyperglycemia (4) Tobacco dependence due to cigarettes Code(s): F17.210 - NICOTINE DEPENDENCE, CIGARETTES, UNCOMPLICATED (5) Marijuana abuse Code(s): F12.10 - CANNABIS ABUSE, UNCOMPLICATED (6) Bipolar disorder Code(s): F31.9 - BIPOLAR DISORDER, UNSPECIFIED Qualifiers: Active/Remission status: in remission of unspecified degree Qualified Code( s): F31.70 - Bipolar disorder, currently in remission, most recent episode unspecified
--- NOTE | 2017-09-11 13:49 | PN ---
Teaching Attending Note Name of Resident: Zane De La Paz ATTENDING PHYSICIAN STATEMENT I saw and evaluated the patient. I reviewed the resident's note and discussed the case with the resident. I agree with the resident's findings and plan as documented. SUBJECTIVE:pain is improved. denies CP, SOB, fever, chills, N/V/C/D OBJECTIVE: Last Vital Signs Temp Pulse Resp BP Pulse Ox 98.1 F 76 18 135/85 99 09/11/17 13:37 09/11/17 13:37 09/11/17 13:37 09/11/17 13:37 09/10/17 23:52 General NAD Groin R side dressing c/d/i. minimal erythema noted surrounding the dressing, reduced signficantly from demarcated line. no tenderness, no swelling ASSESSMENT AND PLAN: 31 yo M with PMH DM, HTN and bipolar d/o presenting to the ER with R groin abscess. 1. R groin abscess- significant improvement. on Clinda and levaquin day 2. dressing changed by surgeron. cont wound care management. f/u Cx. pain control 2. DM- A1c 11.3. will call [facility] for med list that is affordable for pt that he can afford. cont iss for now. u 3. HTN- remains normotensive off medication 4. Morbid obesity- BMI 36.9. counselled on lifestyle changes, has been able to loose significant weight with dietary changes. encouraged he can do it again. 5. bipolar disorder- refuses to take medication at this time. no signs of manic episode 6. DVT ppx- lovenox 7. d/c planning tomorrow once c&s result
--- NOTE | 2017-09-11 16:08 | PN ---
Physical Exam: SUBJECTIVE: Patient seen and examined No acute events overnight. Pt states that his pain is well controlled. No other complaints. OBJECTIVE: Vital Signs Period Temp Pulse Resp BP Sys/Holder Pulse Ox Last 24 Hr 97.9 F-98.9 F 65-92 18-18 115-146/57-85 99-100 GENERAL: middle aged male, awake, alert, and fully oriented, in no acute distress. HEENT: NC, AT, no swelling or erythema in mouth NECK: Normal range of motion, supple without lymphadenopathy, JVD, or masses. LUNGS: Breath sounds equal, clear to auscultation bilaterally. No wheezes, and no crackles. No accessory muscle use. HEART: Regular rate and rhythm, normal S1 and S2 without murmur, rub or gallop. ABDOMEN:obese, soft, nontender, not distended, normoactive bowel sounds, no guarding, no rebound, no masses. No hepatomegaly or splenomegaly. MUSCULOSKELETAL: Normal range of motion at all joints. No bony deformities or tenderness. No CVA tenderness. NEUROLOGICAL: Cranial nerves II-XII intact. Normal speech. Normal gait. SKIN: bandage overlying right medial upper thigh abscess, surrounding erythema has decreased significantly, minimally tender to palpation Laboratory Results - last 24 hr 09/10/17 09/10/17 09/11/17 12:00 22:44 06:06 WBC RBC Hgb Hct MCV MCH MCHC RDW Plt Count MPV Neutrophils % Lymphocytes % Monocytes % Eosinophils % Basophils % Sodium Potassium Chloride Carbon Dioxide Anion Gap BUN Creatinine Creat Clearance w eGFR POC Glucometer 267 276 Random Glucose Hemoglobin A1c % 11.3 H Calcium Phosphorus Magnesium Total Bilirubin AST ALT Alkaline Phosphatase Total Protein Albumin Triglycerides Cholesterol Total LDL Cholesterol HDL Cholesterol TSH 09/11/17 09/11/17 09/11/17 07:47 07:47 07:47 WBC 7.3 RBC 5.23 Hgb 14.2 Hct 42.7 MCV 81.6 MCH 27.0 MCHC 33.2 RDW 14.0 Plt Count 203 MPV 8.5 Neutrophils % 64.0 Lymphocytes % 25.3 Monocytes % 8.8 Eosinophils % 1.5 Basophils % 0.4 Sodium 137 Potassium 4.1 Chloride 104 Carbon Dioxide 24 Anion Gap 9 BUN 12 D Creatinine 0.7 Creat Clearance w eGFR > 60 POC Glucometer Random Glucose 258 H D Hemoglobin A1c % Calcium 8.1 L Phosphorus 3.7 Magnesium 1.8 Total Bilirubin 0.6 AST 14 L ALT 42 Alkaline Phosphatase 104 Total Protein 6.7 Albumin 3.1 L Triglycerides 263 H Cholesterol 183 Total LDL Cholesterol 110 H HDL Cholesterol 36 L TSH 0.66 09/11/17 11:09 WBC RBC Hgb Hct MCV MCH MCHC RDW Plt Count MPV Neutrophils % Lymphocytes % Monocytes % Eosinophils % Basophils % Sodium Potassium Chloride Carbon Dioxide Anion Gap BUN Creatinine Creat Clearance w eGFR POC Glucometer 288 Random Glucose Hemoglobin A1c % Calcium Phosphorus Magnesium Total Bilirubin AST ALT Alkaline Phosphatase Total Protein Albumin Triglycerides Cholesterol Total LDL Cholesterol HDL Cholesterol TSH Active Medications Generic Name Dose Route Start Last Admin Trade Name Freq PRN Reason Stop Dose Admin Acetaminophen 650 mg 09/10/17 19:18 Tylenol - PO Q6H PRN PAIN LEVEL 1 - 3 Enoxaparin Sodium 40 mg 09/11/17 10:00 09/11/17 09:36 Lovenox - SQ 40 mg DAILY AMY Administration Clindamycin Phosphate 600 mg in 50 mls @ 100 mls/hr 09/10/17 21:00 09/11/17 15:11 Cleocin 600 Mg Premix Ivpb - IVPB 100 mls/hr Q6H-IV AMY Administration Levofloxacin 500 mg in 100 mls @ 100 mls/hr 09/11/17 18:00 Levaquin 500 Mg Premixed Ivpb - IVPB DAILY AMY Ibuprofen 600 mg 09/10/17 19:17 09/11/17 05:14 Motrin - PO 600 mg Q6H PRN Administration PAIN LEVEL 4 - 6 Insulin Aspart 1 vial 09/10/17 22:00 09/11/17 11:18 Novolog Vial Sliding Scale - SQ 4 units ACHS AMY Administration Protocol Nicotine 14 mg 09/11/17 10:00 09/11/17 09:36 Nicoderm Patch - TD 14 mg DAILY AMY Administration Tramadol HCl 50 mg 09/10/17 19:18 09/11/17 09:06 Ultram - PO 50 mg Q12H PRN Administration PAIN LEVEL 7 - 10 ASSESSMENT/PLAN: 31M w/ hx of pilonidal abscess (2009), DM, morbid obesity, ?bipolar/depression, fatty liver dz, and a lung nodule presenting with R groin abscess and cellulitis , admitted for IV abx. #R groin abscess and cellulitis- improving -no fever, no leukocytosis -IV clindamycin and levaquin -surgery on board, s/p I&D, f/u recs -monitor for fever or leukocytosis -pain control with APAP, motrin, and tramadol -f/u Bcx, Wcx #DM -a1c: 11.3 -lipid panel: LDL of 110, triglycerides of 263 -TSH: pending -ISS -BGM ACHS #morbid obesity -diabetic diet -RD consult #psych hx -f/u outpt #cigarette use -smoking cessation counseled -nicotine patch #FEN/ppx -po fluids -electrolytes wnl -diabetic diet -no GI ppx indicated -lovenox #dispo -pending cultures Case discussed with attending, Dr. Bhakta. -Zane De La Paz MD PGY1 Visit type - Emergency Visit Emergency Visit: Yes ED Registration Date: 09/10/17 Care time: The patient presented to the Emergency Department on the above date and was hospitalized for further evaluation of their emergent condition. - New Patient This patient is new to me today: No - Critical Care Critical Care patient: No
[2017-09-12] MEDS: traMADol HCL 50 MG TABLET PO PRN ×2 (02:13→16:24)
[2017-09-12] MEDS: CLINDAMYCIN 600MG PREMIX IVPB 600 MG/50 ML BAG IVPB SCH ×4 (02:30→22:00)
[2017-09-12] MEDS: INSULIN SLIDING SCALE (NOVOLOG) 1 VIAL SQ SCH ×4 (06:00→22:04)
[2017-09-12] MEDS ORDERED: INSULIN (NOVOLOG) ASPART 100 UNITS/ML 10ML VIAL ONE ×2 (07:24→20:41)
[2017-09-12 08:24] LABS: BASO % 0.6 % (0-2.0); EOS % 1.8 % (0-4.5); HEMATOCRIT 43.4 % (35.4-49); HEMOGLOBIN 14.6 GM/dL (11.7-16.9); LYMPH % 31.7 % (8-40); MCH 27.2 pg (25.7-33.7); MCHC 33.5 g/dl (32.0-35.9); MEAN CELL VOLUME 81.1 fl (80-96); MEAN PLT VOLUME 8.2 fl (7.5-11.1); MONO % 9.3 % (3.8-10.2); NEUT % 56.6 % (42.8-82.8); PLATELET COUNT 208 K/MM3 (134-434); RBC 5.36 M/mm3 (4.00-5.60); RDW 13.7 % (11.9-15.9); WHITE BLOOD COUNT 6.4 K/mm3 (4.0-10.0)
[2017-09-12] MEDS: IBUPROFEN 600 MG TABLET (FP) PO PRN (09:06)
[2017-09-12] MEDS: NICOTINE 14 MG/24 HOURS TOPICAL PATCH TD SCH (10:46)
[2017-09-12] MEDS: ENOXAPARIN NA (PORCINE) 40 MG/0.4 ML DISP.SYRIN SQ SCH (10:46)
[2017-09-12] MEDS ORDERED: IBUPROFEN 600 MG TABLET (FP) PO SCH (12:00)
--- NOTE | 2017-09-12 12:09 | PN ---
Teaching Attending Note Name of Resident: Zane De La Paz ATTENDING PHYSICIAN STATEMENT I saw and evaluated the patient. I reviewed the resident's note and discussed the case with the resident. I agree with the resident's findings and plan as documented. SUBJECTIVE:stating pain has increased in the area making it difficult to ambulate. states pain is relieved with pain medication. denies Cp, SOb, fever, chills, N/V/C/D OBJECTIVE: Last Vital Signs Temp Pulse Resp BP Pulse Ox 98.0 F 71 18 122/82 98 09/12/17 06:00 09/12/17 06:00 09/12/17 06:00 09/12/17 06:00 09/11/17 21:00 General NAD Groin R surgical incision with packing. surrounding erythema slightly past the marked area medially however very faint overall. no tenderness over this area. extreme tenderness more medial in the thigh, no discrete lesion appreciated. ASSESSMENT AND PLAN: 31 yo M with PMH DM, HTN and bipolar d/o presenting to the ER with R groin abscess. 1. R groin abscess- s/p I&D 09/10. appears improved however pain on the medial thigh. unclear if another abscess is forming. nothing appreaciated in this aread on initial CT or US. will repeat US to evaluate. cont Clinda and levaquin day 3. will make motrin RTC. encouraged to request pain medications when needed as pt only requesting minimal times. f/u official Cx report. 2. DM- A1c 11.3. metformin and glyburide available on [email or web address] $4 list. will start glyburide today and monitor for improved control. will start metformin tomorrow since received contrast. informed him he will liekly require further medication adjustment. agreed he is able to afford medications at this pérez. 3. HTN- remains normotensive off medication 4. Morbid obesity- BMI 36.9. counselled on lifestyle changes, has been able to loose significant weight with dietary changes. encouraged he can do it again. 5. bipolar disorder- refuses to take medication at this time. no signs of manic episode 6. DVT ppx- lovenox
--- NOTE | 2017-09-12 12:43 | PN ---
Physical Exam: SUBJECTIVE: Patient seen and examined No acute events overnight. Pt reports increased pain at rest and during ambulation. He denies fevers, chills, SOB, chest pain, abdominal pain, n/v/d/c, and dysuria. OBJECTIVE: Vital Signs Period Temp Pulse Resp BP Sys/Holder Pulse Ox Last 24 Hr 98.0 F-98.2 F 71-80 18-18 122-148/82-93 98 GENERAL: middle aged male, awake, alert, and fully oriented, in no acute distress. HEENT: NC, AT, no swelling or erythema in mouth NECK: Normal range of motion, supple without lymphadenopathy, JVD, or masses. LUNGS: Breath sounds equal, clear to auscultation bilaterally. No wheezes, and no crackles. No accessory muscle use. HEART: Regular rate and rhythm, normal S1 and S2 without murmur, rub or gallop. ABDOMEN:obese, soft, nontender, not distended, normoactive bowel sounds, no guarding, no rebound, no masses. No hepatomegaly or splenomegaly. MUSCULOSKELETAL: Normal range of motion at all joints. No bony deformities or tenderness. No CVA tenderness. NEUROLOGICAL: Cranial nerves II-XII intact. Normal speech. Normal gait. SKIN: bandage overlying right medial upper thigh abscess, surrounding erythema has increased past line of demarcation, minimally tender to palpation Laboratory Results - last 24 hr 09/11/17 09/11/17 09/12/17 16:45 21:42 05:29 WBC RBC Hgb Hct MCV MCH MCHC RDW Plt Count MPV Neutrophils % Lymphocytes % Monocytes % Eosinophils % Basophils % POC Glucometer 288 281 254 09/12/17 09/12/17 07:15 11:35 WBC 6.4 RBC 5.36 Hgb 14.6 Hct 43.4 MCV 81.1 MCH 27.2 MCHC 33.5 RDW 13.7 Plt Count 208 MPV 8.2 Neutrophils % 56.6 Lymphocytes % 31.7 D Monocytes % 9.3 Eosinophils % 1.8 Basophils % 0.6 POC Glucometer 324 Active Medications Generic Name Dose Route Start Last Admin Trade Name Freq PRN Reason Stop Dose Admin Acetaminophen 650 mg 09/10/17 19:18 09/11/17 16:42 Tylenol - PO 650 mg Q6H PRN Administration PAIN LEVEL 1 - 3 Enoxaparin Sodium 40 mg 09/11/17 10:00 09/12/17 10:46 Lovenox - SQ 40 mg DAILY AMY Administration Glyburide 5 mg 09/12/17 12:45 Diabeta - PO 09/12/17 12:46 ONCE ONE Glyburide 5 mg 09/13/17 07:00 Diabeta - PO DAILY@0700 AMY Clindamycin Phosphate 600 mg in 50 mls @ 100 mls/hr 09/10/17 21:00 09/12/17 09:08 Cleocin 600 Mg Premix Ivpb - IVPB 100 mls/hr Q6H-IV AMY Administration Levofloxacin 500 mg in 100 mls @ 100 mls/hr 09/11/17 18:00 09/11/17 18:14 Levaquin 500 Mg Premixed Ivpb - IVPB 100 mls/hr DAILY AMY Administration Ibuprofen 600 mg 09/12/17 12:00 Motrin - PO Q6HPO AMY Insulin Aspart 1 vial 09/10/17 22:00 09/12/17 11:44 Novolog Vial Sliding Scale - SQ 6 units ACHS AMY Administration Protocol Nicotine 14 mg 09/11/17 10:00 09/12/17 10:46 Nicoderm Patch - TD 14 mg DAILY AMY Administration Tramadol HCl 50 mg 09/10/17 19:18 09/12/17 02:13 Ultram - PO 50 mg Q12H PRN Administration PAIN LEVEL 7 - 10 ASSESSMENT/PLAN: 31M w/ hx of pilonidal abscess (2009), DM, morbid obesity, ?bipolar/depression, fatty liver dz, and a lung nodule presenting with R groin abscess and cellulitis , admitted for IV abx. #R groin abscess and cellulitis- worsening -no fever, no leukocytosis -continue IV clindamycin and levaquin -surgery on board, s/p I&D, recs appreciated -monitor for fever or leukocytosis -pain control with APAP, motrin, and tramadol. motrin changed to standing -Bcx: Nx24h -Wcx: strep agalactiae, awaiting sensitivities -f/u US extremity for possible area of undrained abscess #DM -a1c: 11.3 -lipid panel: LDL of 110, triglycerides of 263 -TSH: 0.66, normal -ISS, required 14U in total over last 24 hours -BGM ACHS -started levemir 7U HS #morbid obesity -diabetic diet -RD consult #psych hx -f/u outpt #cigarette use -smoking cessation counseled -nicotine patch #FEN/ppx -po fluids -electrolytes wnl -diabetic diet -no GI ppx indicated -lovenox #dispo -pending culture sensitivities Case discussed with attending, Dr. Bhakta. -Zane De La Paz MD PGY1 Visit type - Emergency Visit Emergency Visit: Yes ED Registration Date: 09/10/17 Care time: The patient presented to the Emergency Department on the above date and was hospitalized for further evaluation of their emergent condition. - New Patient This patient is new to me today: No - Critical Care Critical Care patient: No - Discharge Referral Referred to [facility] Med P.C.: No
[2017-09-12] MEDS ORDERED: glyBURIDE 5 MG TABLET (UD) PO ONE (12:45)
[2017-09-12] MEDS ORDERED: hydrOXYzine HCL 25 MG TABLET (FP) PO ONE (13:39)
[2017-09-12] MEDS ORDERED: PT OWN MED DRAWER 7, Y5N ONE (14:06)
--- NOTE | 2017-09-12 16:28 | PN ---
Progress Note, Physician History of Present Illness: 31yo male PMH uncontrolled diabetes type 2 s/p I&D of right groin abscess. On Clindamycin per hospitalist team. Pain is manageable, but he is umcomfortable during dressing changes. - Current Medication List Current Medications: Active Medications Acetaminophen (Tylenol -) 650 mg PO Q6H PRN PRN Reason: PAIN LEVEL 1 - 3 Last Admin: 09/11/17 16:42 Dose: 650 mg Enoxaparin Sodium (Lovenox -) 40 mg SQ DAILY [facility] Last Admin: 09/12/17 10:46 Dose: 40 mg Glyburide (Diabeta -) 5 mg PO DAILY@0700 [facility] Clindamycin Phosphate (Cleocin 600 Mg Premix Ivpb -) 600 mg in 50 mls @ 100 mls /hr IVPB Q6H-IV [facility] Last Admin: 09/12/17 09:08 Dose: 100 mls/hr Levofloxacin (Levaquin 500 Mg Premixed Ivpb -) 500 mg in 100 mls @ 100 mls/hr IVPB DAILY [facility] Last Admin: 09/12/17 16:11 Dose: 100 mls/hr Ibuprofen (Motrin -) 600 mg PO Q6HPO [facility] Insulin Aspart (Novolog Vial Sliding Scale -) 1 vial SQ ACHS [facility] PRN Reason: Protocol Last Admin: 09/12/17 11:44 Dose: 6 units Nicotine (Nicoderm Patch -) 14 mg TD DAILY [facility] Last Admin: 09/12/17 10:46 Dose: 14 mg Tramadol HCl (Ultram -) 50 mg PO Q12H PRN PRN Reason: PAIN LEVEL 7 - 10 Last Admin: 09/12/17 02:13 Dose: 50 mg - Objective Vital Signs: Vital Signs Temperature 98.1 F 09/12/17 14:30 Pulse Rate 79 09/12/17 14:30 Respiratory Rate 18 09/12/17 14:30 Blood Pressure 130/81 09/12/17 14:30 O2 Sat by Pulse Oximetry (%) 97 09/12/17 09:00 Vital Signs Period Temp Pulse Resp BP Sys/Holder Pulse Ox Last 24 Hr 98.0 F-98.5 F 71-80 18-18 111-148/67-93 97-98 Constitutional: Yes: No Distress, Calm, Obese Eyes: Yes: Conjunctiva Clear, EOM Intact HENT: Yes: Atraumatic, Normocephalic Neck: Yes: Supple, Trachea Midline Cardiovascular: Yes: Regular Rate and Rhythm, S1, S2 Respiratory: Yes: Regular, CTA Bilaterally Gastrointestinal: Yes: Normal Bowel Sounds, Soft, Abdomen, Obese. No: Tenderness ...Rectal Exam: Yes: Deferred Extremities: No: Cool, Cyanosis Peripheral Pulses WNL: Yes Peripheral Pulses: Right Femoral: 2+ Wound/Incision: Yes: Dressing Removed (replaced with 1/2 inch packing and), Unapproximated (1.5cm circular crater anteromedial thigh. 1cm deep.). No: Draining, Reddened, Bleeding Neurological: Yes: Alert, Oriented Psychiatric: Yes: Alert, Oriented Labs: CBC, BMP 09/12/17 07:15 09/11/17 07:47 INR, PTT INR 0.91 (0.82-1.09) 09/10/17 12:56 Problem List - Problems (1) Abscess of right groin Assessment/Plan: 31yo male with PMH DM type 2 POD2 s/p I&D if right upper thigh abscess the wound is clean. WBC 6.4 (56.6%N) Dressing change daily Continue IV antibiotics premedicated for dressing change Code(s): L02.214 - CUTANEOUS ABSCESS OF GROIN (2) Abscess of right thigh Code(s): L02.415 - CUTANEOUS ABSCESS OF RIGHT LOWER LIMB (3) Diabetes mellitus with hyperglycemia, without long-term current use of insulin Code(s): E11.65 - TYPE 2 DIABETES MELLITUS WITH HYPERGLYCEMIA Qualifiers: Diabetes mellitus type: type 2 Qualified Code(s): E11.65 - Type 2 diabetes mellitus with hyperglycemia (4) Hyperglycemia Code(s): R73.9 - HYPERGLYCEMIA, UNSPECIFIED (5) Bipolar disorder Code(s): F31.9 - BIPOLAR DISORDER, UNSPECIFIED Qualifiers: Active/Remission status: in remission of unspecified degree Qualified Code( s): F31.70 - Bipolar disorder, currently in remission, most recent episode unspecified
[2017-09-12] MEDS: IBUPROFEN 600 MG TABLET (FP) PO SCH ×2 (19:05→23:06)
[2017-09-12] MEDS ORDERED: INSULIN DETEMIR 100 UNITS/ML MDV SQ SCH (22:00)
[2017-09-13] MEDS: CLINDAMYCIN 600MG PREMIX IVPB 600 MG/50 ML BAG IVPB SCH ×3 (02:33→14:21)
[2017-09-13] MEDS ORDERED: PT OWN MED DRAWER 7, Y5N ONE (06:20)
[2017-09-13] MEDS: IBUPROFEN 600 MG TABLET (FP) PO SCH ×2 (06:31→13:08)
[2017-09-13] MEDS: INSULIN SLIDING SCALE (NOVOLOG) 1 VIAL SQ SCH ×2 (06:32→12:09)
[2017-09-13] MEDS ORDERED: glyBURIDE 5 MG TABLET (UD) PO SCH (07:00)
[2017-09-13] MEDS: ENOXAPARIN NA (PORCINE) 40 MG/0.4 ML DISP.SYRIN SQ SCH (09:19)
[2017-09-13] MEDS: NICOTINE 14 MG/24 HOURS TOPICAL PATCH TD SCH (09:19)
[2017-09-13] MEDS: traMADol HCL 50 MG TABLET PO PRN (09:25)
--- NOTE | 2017-09-13 10:38 | PN ---
Progress Note (short form) - Note Progress Note: states pain improved. only has pain during dressing changes. denies CP, SOB, fever, chills, N/V/C/D Current Medications Generic Name Dose Route Start Last Admin Trade Name Freq PRN Reason Stop Dose Admin Acetaminophen 650 mg 09/10/17 19:18 09/11/17 16:42 Tylenol - PO 650 mg Q6H PRN Administration PAIN LEVEL 1 - 3 Enoxaparin Sodium 40 mg 09/11/17 10:00 09/13/17 09:19 Lovenox - SQ 40 mg DAILY AMY Administration Glyburide 5 mg 09/13/17 07:00 09/13/17 06:29 Diabeta - PO 5 mg DAILY@0700 AMY Administration Clindamycin Phosphate 600 mg in 50 mls @ 100 mls/hr 09/10/17 21:00 09/13/17 09:19 Cleocin 600 Mg Premix Ivpb - IVPB 100 mls/hr Q6H-IV AMY Administration Levofloxacin 500 mg in 100 mls @ 100 mls/hr 09/11/17 18:00 09/13/17 09:19 Levaquin 500 Mg Premixed Ivpb - IVPB 100 mls/hr DAILY AMY Administration Ibuprofen 600 mg 09/12/17 13:16 09/13/17 06:31 Motrin - PO 600 mg Q6HPO AMY Administration Insulin Aspart 1 vial 09/10/17 22:00 09/13/17 06:32 Novolog Vial Sliding Scale - SQ 6 units ACHS AMY Administration Protocol Nicotine 14 mg 09/11/17 10:00 09/13/17 09:19 Nicoderm Patch - TD 14 mg DAILY AMY Administration Tramadol HCl 50 mg 09/10/17 19:18 09/13/17 09:25 Ultram - PO 50 mg Q12H PRN Administration PAIN LEVEL 7 - 10 Last Vital Signs Temp Pulse Resp BP Pulse Ox 98.1 F 85 18 132/93 96 09/12/17 22:00 09/12/17 22:00 09/12/17 22:00 09/12/17 22:00 09/12/17 21:00 General NAd extremities R groin 1cm incision with packing, pink tissue. no erythema surrounding incision. no pain in medial groin Microbiology 09/10/17 12:50 Blood Culture - Preliminary Blood - Peripheral Venous NO GROWTH OBTAINED AFTER 48 HOURS, INCUBATION TO CONTINUE FOR 3 DAYS. 09/10/17 12:50 Blood Culture - Preliminary Blood - Peripheral Venous NO GROWTH OBTAINED AFTER 48 HOURS, INCUBATION TO CONTINUE FOR 3 DAYS. 09/10/17 18:40 Wound Culture - Preliminary Abscess Strep Agalactiae Group B ASSESSMENT AND PLAN: 31 yo M with PMH DM, HTN and bipolar d/o presenting to the ER with R groin abscess. 1. R groin abscess- s/p I&D 09/10. erythema resolved. pain improved with motrin RTC. awaiting official report from repeat u/s. on Clinda and levaquin day 4. will switch to cipro as this is on 4 dollar list and something pt is able to afford and comply with. will complete 10 day course. stressed importance of good hygiene and daily dressing changes. can f/u with surgery as outpatient. 2. DM- A1c 11.3. metformin and glyburide available on [employer] $4 list. start metfomin XR 1g today. cont glyburide. encourage pt to check sugars at least twice a day and document and bring with him to PMD appt. will likely require more medication. need A1c check in 3 months. 3. HTN- does not have HTN. 4. Morbid obesity- BMI 36.9. counselled on lifestyle changes, has been able to loose significant weight with dietary changes. encouraged he can do it again. 5. bipolar disorder- refuses to take medication at this time. no signs of manic episode 6. DVT ppx- lovenox 7. d/c home pending result of U/s. Visit type - Emergency Visit Emergency Visit: Yes ED Registration Date: 09/10/17 Care time: The patient presented to the Emergency Department on the above date and was hospitalized for further evaluation of their emergent condition. - New Patient This patient is new to me today: No - Critical Care Critical Care patient: No - Discharge Referral Referred to [facility] Med P.C.: No
[2017-09-13] MEDS ORDERED: metFORMIN HCL 500 MG TABLET (FP) PO ONE (10:45)
--- NOTE | 2017-09-13 12:19 | PN ---
Progress Note (short form) - Note Progress Note: Pt s/p I&D R groin abscess, with uncontrolled diabetes type 2. On Clindamycin and Levofloxacin. Using oral pain medication and feeling better daily. Tolerating diabetic diet. No specific complaints. Wound culture with Group B Strep. Vital Signs Period Temp Pulse Resp BP Sys/Holder Pulse Ox Last 24 Hr 98.1 F-98.5 F 70-85 18-20 111-132/67-93 96 PE: A&O obese, no distress no edema or cyanosis R groin wound with dressing clean, just done by nurse removed - packing removed from wound cavity clean, red base, no oozing of blood, no purulence small rim of denuding skin at wound edge surrounding erythema resolved, soft, minimal local induration area is minimally tender repacked with 1/2" iodoform covered with gauze and tape Microbiology 09/10/17 18:40 Wound Culture - Preliminary Abscess Strep Agalactiae Group B 09/10/17 12:50 Blood Culture - Preliminary Blood - Peripheral Venous NO GROWTH OBTAINED AFTER 48 HOURS, INCUBATION TO CONTINUE FOR 3 DAYS. 09/10/17 12:50 Blood Culture - Preliminary Blood - Peripheral Venous NO GROWTH OBTAINED AFTER 48 HOURS, INCUBATION TO CONTINUE FOR 3 DAYS. A/P: POD3 s/p I&D R groin abscess in uncontrolled diabetic wound clean, cellulitis resolved on antibiotics pt advised to take tylenol and ibuprofen alternating will continue daily wound care with packing changes on his own (VNS not available) - see d/c plan for details start home dressings tomorrow f/u next week in clinic pt understands and agrees with plan Problem List - Problems (1) Abscess of right groin Code(s): L02.214 - CUTANEOUS ABSCESS OF GROIN (2) Cellulitis of right groin Code(s): L03.314 - CELLULITIS OF GROIN (3) Diabetes mellitus with hyperglycemia, without long-term current use of insulin Code(s): E11.65 - TYPE 2 DIABETES MELLITUS WITH HYPERGLYCEMIA Qualifiers: Diabetes mellitus type: type 2 Qualified Code(s): E11.65 - Type 2 diabetes mellitus with hyperglycemia (4) Tobacco dependence due to cigarettes Code(s): F17.210 - NICOTINE DEPENDENCE, CIGARETTES, UNCOMPLICATED (5) Marijuana abuse Code(s): F12.10 - CANNABIS ABUSE, UNCOMPLICATED (6) Bipolar disorder Code(s): F31.9 - BIPOLAR DISORDER, UNSPECIFIED Qualifiers: Active/Remission status: in remission of unspecified degree Qualified Code( s): F31.70 - Bipolar disorder, currently in remission, most recent episode unspecified
[2017-09-13 14:39] VITALS: BP 137/97; PULSE 87; TEMP 97.8
== END 2017-09-13 15:42 | disposition home or self-care (01) | DRG 603 ==
LOC: JER 11:14 → JERBED 17:42 → J5S 20:30
PROVIDERS: ADMIT Internal Medicine; ATTEND Internal Medicine
PROC: 0J9C3ZZ Drainage of Pelvic Region Subcutaneous Tissue and Fascia, Percutaneous Approach (ICD-10-PCS; principal; 2017-09-10)
DX: L02.214 Cutaneous abscess of groin (principal); Z68.41 Body mass index [BMI] 40.0-44.9, adult; E66.01 Morbid (severe) obesity due to excess calories; K76.0 Fatty (change of) liver, not elsewhere classified; R91.1 Solitary pulmonary nodule; L03.314 Cellulitis of groin; E11.65 Type 2 diabetes mellitus with hyperglycemia; F17.210 Nicotine dependence, cigarettes, uncomplicated; F12.10 Cannabis abuse, uncomplicated; F31.9 Bipolar disorder, unspecified; I10 Essential (primary) hypertension
CPT/HCPCS: 36415; 73701-TC-RT; 76882; 80053; 80061; 82962; 83036; 83721; 83735; 84100; 84443; 85025; 85610; 87040; 87070; 87186; 87205; 99283-25

== ENCOUNTER 2019-05-02 17:52 | Inpatient (IN) | payer OTHER ==
[2019-05-02 19:05] VITALS: BMI 44.5
--- NOTE | 2019-05-02 21:03 | HP ---
CIWA Score Nausea/Vomitin-Mild Nausea/No Vomiting Muscle Tremors: 4-Moderate,w/Arms Extend Anxiety: 4-Mod. Anxious/Guarded Agitation: 4-Moderately Restless Paroxysmal Sweats: 3 Orientation: 0-Oriented Tacttile Disturbances: 0-None Auditory Disturbances: 0-None Visual Disturbances: 0-None Headache: 2-Mild CIWA-Ar Total Score: 18 - Admission Criteria OASAS Guidelines: Admission for Medically Managed Detox: Requires at least one of the followin. CIWA greater than 12 2. Seizures within the past 24 hours 3. Delirium tremens within the past 24 hours 4. Hallucinations within the past 24 hours 5. Acute intervention needed for co occurring medical disorder 6. Acute intervention needed for co occurring psychiatric disorder 7. Severe withdrawal that cannot be handled at a lower level of care (continued vomiting, continued diarrhea, abnormal vital signs) requiring intravenous medication and/or fluids 8. Admitting History and Physical - Past Medical History Cardiovascular: Yes: HTN Psych: Yes: Bipolar (no longer taking meds or seeing psych regularly) Endocrine: Yes: Diabetes Mellitus (not currently taking meds) - Smoking History Smoking history: Current every day smoker Have you smoked in the past 12 months: Yes Aproximately how many cigarettes per day: 10 - Alcohol/Substance Use Hx Alcohol Use: Yes (about weekly, ~6 drinks/sitting) History of Substance Use: reports: Marijuana (every 2-3 days) - Social History ADL: Independent Occupation: salesman Admission [facility] Chief Complaint: Alcohol withdrawal symptoms Allergies/Adverse Reactions: Allergies Allergy/AdvReac Type Severity Reaction Status Date / Time codeine [Codeine] Allergy Verified 05/02/19 18:56 Penicillins Allergy Verified 05/02/19 18:56 History of Present Illness: 33 years old male with a long history of alcohol withdrawal symptoms is seeking admission to detox. Patient has been to multiple detox, last at [facility] for 3 [facility]. He was also at [facility] 2 [facility].. He reports medical history of Diabetes Type 2, hypertension, depression and anxiety. He reports multiple suicide attempt, last attempt was February 2019 with ideation of jumping down the bridge. He denies suicidal ideation at this time. He reports that he had a black out yesterday. Exam Limitations: No Limitations - Ebola screening Have you traveled outside of the country in the last 21 days: No (N) Have you had contact with anyone from an Ebola affected area: No Do you have a fever: No - Review of Systems Constitutional: Chills, Malaise, Night Sweats, Changes in sleep EENT: reports: Nose Congestion Respiratory: reports: No Symptoms reported Cardiac: reports: No Symptoms Reported GI: reports: Diarrhea, Poor Appetite, Poor Fluid Intake, Vomiting, Abdominal cramping : reports: No Symptoms Reported Musculoskeletal: reports: Back Pain, Joint Pain Integumentary: reports: Dryness, Flushing Neuro: reports: Headache, Tremors Endocrine: reports: No Symptoms Reported Hematology: reports: No Symptoms Reported Psychiatric: reports: Agitated, Anxious Other Systems: Reviewed and Negative Patient History - Patient Medical History Hx Anemia: No Hx Asthma: No Hx Chronic Obstructive Pulmonary Disease (COPD): No Hx Cancer: No Hx Cardiac Disorders: No Hx Congestive Heart Failure: No Hx Hypertension: Yes (Not on medication) Hx Hypercholesterolemia: No Hx Pacemaker: No HX Cerebrovascular Accident: No Hx Seizures: No Hx Dementia: No Hx Diabetes: Yes (DM Type 2) Hx Gastrointestinal Disorders: No Hx Liver Disease: No Hx Genitourinary Disorders: No Hx Sexually Transmitted Disorders: No Hx Renal Disease (ESRD): No Hx Depression: (H/O BIPOLAR) - Patient Surgical History Past Surgical History: No - Reproductive History Patient is a Female of Child Bearing Age (11 -55 yrs old): No (male) - Smoking Cessation Smoking history: Current every day smoker Have you smoked in the past 12 months: Yes Aproximately how many cigarettes per day: 10 Hx Chewing Tobacco Use: No Initiated information on smoking cessation: Yes 'Breaking Loose' booklet given: 05/02/19 - Substance & Tx. History Hx Alcohol Use: Yes Substance Use Type: Alcohol, Marijuana Hx Substance Use Treatment: Yes - Substances abused Alcohol Substance route: Oral Frequency: Daily Amount used: 3 six pack beers (12 oz) Age of first use: 11 Date of last use: 05/02/19 Admission Physical Exam [facility] - Vital Signs Vital Signs: Vital Signs - 24 hr 05/02/19 19:01 Temperature 97.6 F Pulse Rate 91 H Respiratory 18 Rate Blood Pressure 122/80 - Physical General Appearance: Yes: Moderate Distress, Tremorous, Irritable, Sweating, Anxious HEENTM: Yes: Within Normal Limits, Normal ENT Inspection, Normocephalic Respiratory: Yes: Lungs Clear, Normal Breath Sounds, No Respiratory Distress Neck: Yes: Supple Breast: Yes: Breast Exam Deferred Cardiology: Yes: Tachycardia Abdominal: Yes: Normal Bowel Sounds Genitourinary: Yes: Within Normal Limits Back: Yes: Normal Inspection Musculoskeletal: Yes: Back pain, Muscle Pain Extremities: Yes: Tremors Neurological: Yes: Within Normal Limits, Normal Mood/Affect Integumentary: Yes: Warm Lymphatic: Yes: Within Normal Limits - Diagnostic (1) 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 Level of Care: Medically Managed Detox Regimen/Protocol: Librium Claeared for Rehab Admission: No Breathalyzer - Breathalyzer Breathalyzer: 0.024 Urine Drug Screen - Test Device Lot number: [id number] Expiration date: 12/18/20 - Control Is test valid?: Yes - Results Drug screen NEGATIVE: No Urine drug screen results: THC-Marijuana Inpatient Rehab Admission - Rehab Decision to Admit Inpatient rehab admission?: No
[2019-05-02] MEDS ORDERED: BISMUTH SUBSALICYLATE 524 MG/30 ML UD PO PRN (21:40)
[2019-05-02] MEDS ORDERED: IBUPROFEN 400 MG TABLET (FP) PO PRN (21:40)
[2019-05-02] MEDS ORDERED: MAG HYDROX/AL HYDROX/SIMETH 30 ML UNIT-DOSE CUP PO PRN (21:40)
[2019-05-02] MEDS ORDERED: METHOCARBAMOL 500 MG TABLET PO PRN (21:40)
[2019-05-02] MEDS ORDERED: MAGNESIUM CITRATE 300 ML BOTTLE PO PRN (21:40)
[2019-05-02] MEDS ORDERED: ACETAMINOPHEN 325 MG TABLET (FP) PO PRN ×2 (21:40)
[2019-05-02] MEDS ORDERED: hydrOXYzine PAMOATE 25 MG CAPSULE (FP) PO PRN (21:40)
[2019-05-02] MEDS ORDERED: MAGNESIUM HYDROX 2400MG/30ML ORAL SUSPENSION 30 ML CUP PO PRN (21:40)
[2019-05-02] MEDS ORDERED: MENTHOL/PHENOL 1 EACH UD MM PRN (21:40)
[2019-05-02] MEDS ORDERED: chlordiazePOXIDE HCL 25 MG CAPSULE PO PRN (21:40)
[2019-05-02] MEDS ORDERED: MELATONIN 5 MG TABLETS PO PRN (22:00)
[2019-05-02] MEDS: chlordiazePOXIDE HCL 25 MG CAPSULE PO SCH (23:31)
[2019-05-02] MEDS: THIAMINE HCL 100 MG TABLET (FP) PO SCH (23:32)
[2019-05-03] MEDS: chlordiazePOXIDE HCL 25 MG CAPSULE PO SCH ×4 (05:29→23:28)
[2019-05-03] MEDS ORDERED: INSULIN SLIDING SCALE (NOVOLOG) 1 VIAL SQ SCH (07:00)
[2019-05-03] MEDS ORDERED: INSULIN SLIDING SCALE (NOVOLOG) 1 VIAL SQ ONE (07:32)
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
[2019-05-03 10:05] LABS: HEMATOCRIT 44.2 % (35.4-49); MCHC 33.9 g/dl (32.0-35.9); MEAN CELL VOLUME 82.6 fl (80-96); MEAN PLT VOLUME 8.5 fl (7.5-11.1); PLATELET COUNT 244 K/MM3 (134-434); RBC 5.35 M/mm3 (4.00-5.60); RDW 13.8 % (11.9-15.9); WHITE BLOOD COUNT 7.2 K/mm3 (4.0-10.0)
[2019-05-03 10:14] LABS: ALBUMIN 3.4 g/dl (3.4-5.0); BILIRUBIN,TOTAL 0.2 mg/dL (0.2-1); BLOOD UREA NITROGEN 9.1 mg/dL (7-18); CALCIUM 9.1 mg/dL (8.5-10.1); CREATININE 0.8 mg/dL (0.55-1.3); POTASSIUM 4.2 mmol/L (3.5-5.1); TOT PROT 7.2 g/dl (6.4-8.2)
[2019-05-03] MEDS ORDERED: hydrOXYzine PAMOATE 50 MG CAPSULE (FP) PO PRN (10:32)
[2019-05-03] MEDS: PRENATAL VITAMINS W/ FOLIC ACID TABLET (FP) PO SCH (10:49)
[2019-05-03] MEDS ORDERED: PNEUMOC 13-VAL CONJ-DIP CRM/PF 0.5 ML DISP.SYRIN IM ONE (12:00)
[2019-05-03] MEDS ORDERED: PNEUMOCOCCAL 23 VACCINE 0.5 ML VIAL IM ONE (12:00)
[2019-05-03] MEDS: ZIPRASIDONE 40 MG CAPSULE (FP) PO SCH ×2 (12:30→23:28)
--- NOTE | 2019-05-03 12:51 | PN ---
S CIWA - CIWA Score Nausea/Vomitin-No Nausea/No Vomiting Muscle Tremors: 4-Moderate,w/Arms Extend Anxiety: 4-Mod. Anxious/Guarded Agitation: 4-Moderately Restless Paroxysmal Sweats: 2 Orientation: 0-Oriented Tacttile Disturbances: 0-None Auditory Disturbances: 0-None Visual Disturbances: 0-None Headache: 0-None Present CIWA-Ar Total Score: 14 BHS Progress Note (SOAP) Subjective: restless sweats anxiety interrupted sleep Objective: 05/03/19 12:49 Vital Signs Temperature 97 F L 05/03/19 09:21 Pulse Rate 72 05/03/19 09:21 Respiratory Rate 18 05/03/19 09:21 Blood Pressure 149/91 05/03/19 09:21 O2 Sat by Pulse Oximetry (%) Laboratory Tests 05/02/19 05/03/19 05/03/19 21:50 05:28 08:00 WBC 7.2 RBC 5.35 Hgb 15.0 Hct 44.2 MCV 82.6 MCH 28.0 MCHC 33.9 RDW 13.8 Plt Count 244 MPV 8.5 Sodium Potassium Chloride Carbon Dioxide Anion Gap BUN Creatinine Est GFR (CKD-EPI)AfAm Est GFR (CKD-EPI)NonAf POC Glucometer 335 256 Random Glucose Calcium Total Bilirubin AST ALT Alkaline Phosphatase Total Protein Albumin 05/03/19 08:00 WBC RBC Hgb Hct MCV MCH MCHC RDW Plt Count MPV Sodium 135 L Potassium 4.2 Chloride 101 Carbon Dioxide 28 Anion Gap 7 L BUN 9.1 Creatinine 0.8 Est GFR (CKD-EPI)AfAm 134.14 Est GFR (CKD-EPI)NonAf 115.74 POC Glucometer Random Glucose 339 H Calcium 9.1 Total Bilirubin 0.2 AST 19 ALT 42 Alkaline Phosphatase 132 H Total Protein 7.2 Albumin 3.4 labs noted elevated glucose aaox3 ambulating no acute distress Assessment: 05/03/19 12:50 withdrawals sx Plan: continue detox increase water intake
[2019-05-03] MEDS: INSULIN SLIDING SCALE (NOVOLOG) 1 VIAL SQ SCH (17:00)
[2019-05-03] MEDS: THIAMINE HCL 100 MG TABLET (FP) PO SCH (23:31)
[2019-05-04] MEDS: chlordiazePOXIDE HCL 25 MG CAPSULE PO SCH ×2 (05:51→10:10)
[2019-05-04] MEDS: INSULIN SLIDING SCALE (NOVOLOG) 1 VIAL SQ SCH ×2 (07:38→11:12)
[2019-05-04] MEDS: ZIPRASIDONE 40 MG CAPSULE (FP) PO SCH (10:10)
[2019-05-04] MEDS: PRENATAL VITAMINS W/ FOLIC ACID TABLET (FP) PO SCH (10:10)
--- NOTE | 2019-05-04 11:33 | PN ---
S CIWA - CIWA Score Nausea/Vomitin-Mild Nausea/No Vomiting Muscle Tremors: 1-None Visible, but [place] Anxiety: 1-Mildly Anxious Agitation: 1-Slight > Activity Paroxysmal Sweats: 2 Orientation: 0-Oriented Tacttile Disturbances: 1-Very Mild Itch/Numbness Auditory Disturbances: 0-None Visual Disturbances: 0-None Headache: 1-Very Mild CIWA-Ar Total Score: 8 BHS Progress Note (SOAP) Subjective: interrupted sleep, mild sweats, feeling overall beter Objective: 05/04/19 11:30 Vital Signs Temperature 96.1 F L 05/04/19 09:14 Pulse Rate 81 05/04/19 09:14 Respiratory Rate 18 05/04/19 09:14 Blood Pressure 152/83 05/04/19 09:14 O2 Sat by Pulse Oximetry (%) Laboratory Tests 05/02/19 05/03/19 05/03/19 21:50 05:28 08:00 WBC 7.2 RBC 5.35 Hgb 15.0 Hct 44.2 MCV 82.6 MCH 28.0 MCHC 33.9 RDW 13.8 Plt Count 244 MPV 8.5 Sodium Potassium Chloride Carbon Dioxide Anion Gap BUN Creatinine Est GFR (CKD-EPI)AfAm Est GFR (CKD-EPI)NonAf POC Glucometer 335 256 Random Glucose Calcium Total Bilirubin AST ALT Alkaline Phosphatase Total Protein Albumin RPR Titer HIV 1&2 Antibody Screen HIV P24 Antigen 05/03/19 05/03/19 05/03/19 08:00 08:00 08:00 WBC RBC Hgb Hct MCV MCH MCHC RDW Plt Count MPV Sodium 135 L Potassium 4.2 Chloride 101 Carbon Dioxide 28 Anion Gap 7 L BUN 9.1 Creatinine 0.8 Est GFR (CKD-EPI)AfAm 134.14 Est GFR (CKD-EPI)NonAf 115.74 POC Glucometer Random Glucose 339 H Calcium 9.1 Total Bilirubin 0.2 AST 19 ALT 42 Alkaline Phosphatase 132 H Total Protein 7.2 Albumin 3.4 RPR Titer Nonreactive HIV 1&2 Antibody Screen Negative HIV P24 Antigen Negative 05/03/19 05/04/19 05/04/19 16:26 05:47 11:09 WBC RBC Hgb Hct MCV MCH MCHC RDW Plt Count MPV Sodium Potassium Chloride Carbon Dioxide Anion Gap BUN Creatinine Est GFR (CKD-EPI)AfAm Est GFR (CKD-EPI)NonAf POC Glucometer 322 326 319 Random Glucose Calcium Total Bilirubin AST ALT Alkaline Phosphatase Total Protein Albumin RPR Titer HIV 1&2 Antibody Screen HIV P24 Antigen obese ,male pt aox3 in nad , ambulating well Assessment: 05/04/19 11:32 withdrawal sx's DM Plan: continue detox increase fluids cont. to monitor bgm and coverage as indicated NCS no added salt diet. d/c in am f/up with PMD on d/c
[2019-05-04 13:05] VITALS: BP 146/96; PULSE 82; TEMP 99
--- NOTE | 2019-05-04 15:09 | DS ---
[facility] Detox Discharge Summary Admission Date: 05/02/19 - History Present History: Alcohol Dependence, Cannabis Dependence - Physical Exam Results Vital Signs: Vital Signs Temperature 99 F 05/04/19 13:04 Pulse Rate 82 05/04/19 13:04 Respiratory Rate 20 05/04/19 13:04 Blood Pressure 146/96 05/04/19 13:04 O2 Sat by Pulse Oximetry (%) - Treatment Hospital Course: Detox Protocol Followed - Medication Discharge Medications: Ambulatory Orders Ibuprofen [Motrin -] 400 mg PO QID PRN #30 tablet 09/13/17 - Diagnosis (1) Alcohol dependence Current Visit: Yes Status: Chronic Qualifiers: Substance use status: uncomplicated Qualified Code(s): F10.20 - Alcohol dependence, uncomplicated (2) Bipolar disorder Current Visit: Yes Status: Chronic (3) Diabetes type 2, uncontrolled Current Visit: Yes Status: Chronic (4) Hypertension Current Visit: Yes Status: Chronic (5) Marijuana abuse Current Visit: Yes Status: Chronic (6) Tobacco dependence due to cigarettes Current Visit: Yes Status: Chronic - AMA Did Patient Leave Against Medical Advice: Yes (Pt states he feels fine and wants to leave doesn't want any more detox.m )
[2019-05-04] MEDS ORDERED: metFORMIN HCL 500 MG TABLET (FP) PO SCH (16:30)
[2019-05-05] MEDS ORDERED: chlordiazePOXIDE HCL 10 MG CAPSULE PO PRN
[2019-05-05] MEDS ORDERED: chlordiazePOXIDE HCL 10 MG CAPSULE PO SCH (05:00)
[2019-05-06] MEDS ORDERED: chlordiazePOXIDE HCL 10 MG CAPSULE PO SCH (05:00)
[2019-05-07] MEDS ORDERED: chlordiazePOXIDE HCL 10 MG CAPSULE PO ONE (05:00)
== END 2019-05-04 15:39 | disposition left against medical advice (07) | DRG 894 ==
LOC: YASAS 17:52 → EDBD 17:52 → Y6N 21:45
PROVIDERS: ADMIT Allergy & Immunology; ATTEND Allergy & Immunology
PROC: HZ2ZZZZ Detoxification Services for Substance Abuse Treatment (ICD-10-PCS; principal; 2019-05-02)
DX: F10.230 Alcohol dependence with withdrawal, uncomplicated (principal); F19.282 Other psychoactive substance dependence with psychoactive substance-induced sleep disorder; F12.20 Cannabis dependence, uncomplicated; F17.210 Nicotine dependence, cigarettes, uncomplicated; F25.9 Schizoaffective disorder, unspecified; F31.9 Bipolar disorder, unspecified; I10 Essential (primary) hypertension; E11.65 Type 2 diabetes mellitus with hyperglycemia; Z79.4 Long term (current) use of insulin; Z88.0 Allergy status to penicillin; Z88.5 Allergy status to narcotic agent
CPT/HCPCS: 36415; 80053; 82962; 85027; 86593; 87389; 90732; G0009

== ENCOUNTER 2020-12-25 23:23 | Inpatient (IN) | payer OTHER ==
[2020-12-25 23:51] VITALS: BMI 41.9
[2020-12-26] MEDS ORDERED: DICYCLOMINE HCL 10 MG CAPSULE PO PRN (00:01)
[2020-12-26] MEDS ORDERED: MAGNESIUM HYDROX 2400MG/30ML ORAL SUSPENSION 30 ML CUP PO PRN (00:01)
[2020-12-26] MEDS ORDERED: ACETAMINOPHEN 325 MG TABLET (FP) PO PRN ×2 (00:01)
[2020-12-26] MEDS ORDERED: P-EPHED 60MG/TRIPROLIDI 2.5MG TABLET PO PRN (00:01)
[2020-12-26] MEDS ORDERED: METHOCARBAMOL 500 MG TABLET PO PRN (00:01)
[2020-12-26] MEDS ORDERED: IBUPROFEN 400 MG TABLET (FP) PO PRN (00:01)
[2020-12-26] MEDS ORDERED: guaiFENesin 200 MG/10 ML 10 ML UNIT-DOSE CUPS PO PRN (00:01)
[2020-12-26] MEDS ORDERED: MENTHOL/PHENOL 1 EACH UD MM PRN (00:01)
[2020-12-26] MEDS ORDERED: NICOTINE POLACRILEX 4 MG GUM BUC PRN (00:01)
[2020-12-26] MEDS ORDERED: LORazepam 1 MG TABLET PO PRN (00:01)
[2020-12-26] MEDS ORDERED: MAGNESIUM CITRATE 300 ML BOTTLE PO PRN (00:01)
[2020-12-26] MEDS ORDERED: ONDANSETRON *ODT* 4 MG TABLET SL PRN (00:01)
[2020-12-26] MEDS ORDERED: MAG HYDROX/AL HYDROX/SIMETH 30 ML UNIT-DOSE CUP PO PRN (00:01)
[2020-12-26] MEDS ORDERED: BISMUTH SUBSALICYLATE 524 MG/30 ML PO PRN (00:01)
[2020-12-26] MEDS: LORazepam 2 MG TABLET PO SCH ×4 (06:33→23:22)
[2020-12-26] MEDS: NICOTINE 21 MG/24 HOURS TOPICAL PATCH TD SCH (10:41)
[2020-12-26] MEDS: PRENATAL VITAMINS W/ FOLIC ACID TABLET (FP) PO SCH (10:42)
[2020-12-26] MEDS ORDERED: COLLOIDAL OATMEAL 1 BAR EACH TP ONE (11:20)
[2020-12-26] MEDS ORDERED: diphenhydrAMINE HCL 25 MG CAPSULE (FP) PO ONE (11:38)
[2020-12-26] MEDS: FLUOCINONIDE 0.05% CREAM (60 GM TUBE) TP SCH ×3 (15:00→23:22)
[2020-12-26] MEDS: metFORMIN HCL 500 MG TABLET (FP) PO SCH (18:48)
[2020-12-26] MEDS ORDERED: MELATONIN 5 MG TABLETS PO SCH (22:00)
[2020-12-26] MEDS ORDERED: THIAMINE HCL 100 MG TABLET (FP) PO SCH (22:00)
[2020-12-26] MEDS ORDERED: DIVALPROEX SODIUM 500 MG TABLET E.C. PO SCH (22:00)
[2020-12-26] MEDS ORDERED: ARIPiprazole 10 MG TABLET PO SCH (22:00)
[2020-12-27] MEDS: LORazepam 1 MG TABLET PO SCH ×2 (06:35→10:10)
[2020-12-27 06:51] VITALS: BP 132/88; PULSE 80; TEMP 97
[2020-12-27] MEDS: metFORMIN HCL 500 MG TABLET (FP) PO SCH (07:59)
[2020-12-27] MEDS: NICOTINE 21 MG/24 HOURS TOPICAL PATCH TD SCH (10:10)
[2020-12-27] MEDS: FLUOCINONIDE 0.05% CREAM (60 GM TUBE) TP SCH (10:10)
[2020-12-27] MEDS: PRENATAL VITAMINS W/ FOLIC ACID TABLET (FP) PO SCH (10:10)
[2020-12-27 11:01] LABS: HEMATOCRIT 44.3 % (35.4-49); HEMOGLOBIN 15.3 GM/dL (11.7-16.9); MCHC 34.5 g/dl (32.0-35.9); MEAN CELL VOLUME 84.2 fl (80-96); MEAN PLT VOLUME 8.3 fl (7.5-11.1); PLATELET COUNT 251 K/MM3 (134-434); RBC 5.26 M/mm3 (4.00-5.60); RDW 13.4 % (11.9-15.9); WHITE BLOOD COUNT 7.5 K/mm3 (4.0-10.0)
[2020-12-27 11:27] LABS: ALBUMIN 3.2 g/dl (3.4-5.0); BLOOD UREA NITROGEN 11.4 mg/dL (7-18); CALCIUM 8.8 mg/dL (8.5-10.1)
[2020-12-27 11:31] LABS: BILIRUBIN,TOTAL 0.8 mg/dL (0.2-1); CREATININE 0.6 mg/dL (0.55-1.3)
[2020-12-27 11:32] LABS: TOT PROT 6.9 g/dl (6.4-8.2)
[2020-12-28] MEDS ORDERED: LORazepam 0.5 MG TABLET PO PRN
[2020-12-28] MEDS ORDERED: LORazepam 0.5 MG TABLET PO SCH (05:00)
[2020-12-29] MEDS ORDERED: LORazepam 0.5 MG TABLET PO ONE (05:00)
== END 2020-12-27 08:54 | disposition left against medical advice (07) | DRG 894 ==
LOC: EDBD → YASAS 23:23 → Y3N 12-26 01:04
PROVIDERS: ADMIT Allergy & Immunology; ATTEND Allergy & Immunology
PROC: HZ2ZZZZ Detoxification Services for Substance Abuse Treatment (ICD-10-PCS; principal; 2020-12-26)
DX: F10.230 Alcohol dependence with withdrawal, uncomplicated (principal); F14.20 Cocaine dependence, uncomplicated; F16.20 Hallucinogen dependence, uncomplicated; F19.282 Other psychoactive substance dependence with psychoactive substance-induced sleep disorder; L03.314 Cellulitis of groin; Z68.41 Body mass index [BMI] 40.0-44.9, adult; F12.20 Cannabis dependence, uncomplicated; F17.210 Nicotine dependence, cigarettes, uncomplicated; F19.24 Other psychoactive substance dependence with psychoactive substance-induced mood disorder; F31.70 Bipolar disorder, currently in remission, most recent episode unspecified; E11.65 Type 2 diabetes mellitus with hyperglycemia; E78.5 Hyperlipidemia, unspecified; I10 Essential (primary) hypertension; E66.01 Morbid (severe) obesity due to excess calories; Z91.14 Patient's other noncompliance with medication regimen
CPT/HCPCS: 36415; 80053; 82962; 85027; 86780; 93005; 93010; C9803; U0003; U0005

== ENCOUNTER 2021-02-14 01:43 | Emergency (ER) | payer SELFPAY ==
[2021-02-14 02:19] VITALS: BP 121/77; PULSE 84; TEMP 98.2; BMI 38.0
[2021-02-14] MEDS ORDERED: hydrOXYzine HCL 10 MG/5 ML LIQUID BULK BOTTLE PO ONE (03:08)
== END 2021-02-14 03:18 | disposition left against medical advice (07) ==
LOC: JER 01:43
DX: L29.9 Pruritus, unspecified (principal)
CPT/HCPCS: 82962; 99283-25

== ENCOUNTER 2021-02-23 10:19 | Emergency (ER) | payer OTHER ==
[2021-02-23 10:48] VITALS: BP 122/83; PULSE 76; TEMP 98.3; BMI 40.3
[2021-02-23] MEDS ORDERED: ACETAMINOPHEN 325 MG TABLET (FP) PO ONE (11:29)
[2021-02-23] MEDS ORDERED: ACETAMINOPHEN 325 MG TABLET (FP) ONE (11:31)
== END 2021-02-23 14:41 | disposition home or self-care (01) ==
LOC: JER 10:19
DX: S69.92XA Unspecified injury of left wrist, hand and finger(s), initial encounter (principal); R21 Rash and other nonspecific skin eruption; F31.9 Bipolar disorder, unspecified; W22.09XA Striking against other stationary object, initial encounter
CPT/HCPCS: 73130-TC-LT-FY; 93005; 93010; 99283-25

== ENCOUNTER 2021-11-25 12:03 | Inpatient (IN) | payer OTHER ==
[2021-11-25 09:55] VITALS: BMI 39.7
[2021-11-25] MEDS ORDERED: LOPERAMIDE HCL 2 MG CAPSULE PO PRN (13:01)
[2021-11-25] MEDS ORDERED: IBUPROFEN 400 MG TABLET (FP) PO PRN (13:01)
[2021-11-25] MEDS ORDERED: NICOTINE 10 MG CARTRIDGE (INHALER) IH PRN (13:01)
[2021-11-25] MEDS ORDERED: ONDANSETRON *ODT* 4 MG TABLET SL PRN (13:01)
[2021-11-25] MEDS ORDERED: chlordiazePOXIDE HCL 25 MG CAPSULE PO PRN (13:01)
[2021-11-25] MEDS ORDERED: MAG HYDROX/AL HYDROX/SIMETH 30 ML UNIT-DOSE CUP PO PRN (13:01)
[2021-11-25] MEDS ORDERED: DICYCLOMINE HCL 10 MG CAPSULE PO PRN (13:01)
[2021-11-25] MEDS ORDERED: ACETAMINOPHEN 325 MG TABLET (FP) PO PRN ×2 (13:01)
[2021-11-25] MEDS ORDERED: MAGNESIUM HYDROX 2400MG/30ML ORAL SUSPENSION 30 ML CUP PO PRN (13:01)
[2021-11-25] MEDS ORDERED: MAGNESIUM CITRATE 300 ML BOTTLE PO PRN (13:01)
[2021-11-25] MEDS ORDERED: BISMUTH SUBSALICYLATE 524 MG/30 ML PO PRN (13:01)
[2021-11-25] MEDS ORDERED: BENZOCAINE/MENTHOL (CHLORASEPTIC ) LOZENGE MM PRN (13:01)
[2021-11-25] MEDS ORDERED: METHOCARBAMOL 500 MG TABLET PO PRN (13:01)
[2021-11-25] MEDS ORDERED: CLINDAMYCIN HCL 150 MG CAPSULE (FP) PO ONE (13:13)
[2021-11-25] MEDS ORDERED: INSULIN (NOVOLOG) ASPART 100 UNITS/ML 10ML VIAL SQ ONE (14:15)
[2021-11-25] MEDS: hydrOXYzine PAMOATE 25 MG CAPSULE (FP) PO SCH ×3 (15:31→22:35)
[2021-11-25] MEDS ORDERED: INSULIN SLIDING SCALE (NOVOLOG) 1 VIAL SQ ONE (16:37)
[2021-11-25] MEDS: INSULIN (NOVOLOG) ASPART 100 UNITS/ML 10ML VIAL SQ SCH ×2 (16:38→22:02)
[2021-11-25] MEDS: metFORMIN HCL 500 MG TABLET (FP) PO SCH (16:40)
[2021-11-25] MEDS: chlordiazePOXIDE HCL 25 MG CAPSULE PO SCH ×2 (16:41→22:35)
[2021-11-25] MEDS: CLINDAMYCIN HCL 150 MG CAPSULE (FP) PO SCH ×2 (17:14→23:16)
[2021-11-25] MEDS: THIAMINE HCL 100 MG TABLET (FP) PO SCH (22:35)
[2021-11-25] MEDS: MELATONIN 5 MG TABLETS PO SCH (22:35)
[2021-11-25] MEDS: CLINDAMYCIN PHOSPHATE 1% TOPICAL GEL 30 GM TUBE TP SCH (22:39)
[2021-11-26] MEDS: chlordiazePOXIDE HCL 25 MG CAPSULE PO SCH ×4 (06:46→23:02)
[2021-11-26] MEDS: hydrOXYzine PAMOATE 25 MG CAPSULE (FP) PO SCH ×5 (06:47→23:02)
[2021-11-26] MEDS: metFORMIN HCL 500 MG TABLET (FP) PO SCH ×2 (06:47→18:10)
[2021-11-26] MEDS: CLINDAMYCIN HCL 150 MG CAPSULE (FP) PO SCH ×3 (06:47→19:30)
[2021-11-26] MEDS ORDERED: INSULIN SLIDING SCALE (NOVOLOG) 1 VIAL SQ ONE ×3 (06:49→17:06)
[2021-11-26] MEDS: INSULIN (NOVOLOG) ASPART 100 UNITS/ML 10ML VIAL SQ SCH ×4 (07:06→21:15)
[2021-11-26] MEDS ORDERED: PRENATAL VITAMINS W/ FOLIC ACID TABLET (FP) PO SCH (10:00)
[2021-11-26] MEDS: CLINDAMYCIN PHOSPHATE 1% TOPICAL GEL 30 GM TUBE TP SCH ×2 (10:16→23:02)
[2021-11-26 11:04] LABS: HEMOGLOBIN 15.4 GM/dL (11.7-16.9); MCHC 32.7 g/dl (32.0-35.9); MEAN CELL VOLUME 85.7 fl (80-96); MEAN PLT VOLUME 8.7 fl (7.5-11.1); PLATELET COUNT 227 10^3/uL (134-434); RBC 5.48 M/mm3 (4.00-5.60); RDW 13.9 % (11.9-15.9); WHITE BLOOD COUNT 6.2 K/mm3 (4.0-10.0)
[2021-11-26 11:39] LABS: BLOOD UREA NITROGEN 11.7 mg/dL (7-18); CALCIUM 8.9 mg/dL (8.5-10.1)
[2021-11-26 11:42] LABS: CREATININE 0.8 mg/dL (0.55-1.3)
[2021-11-26 11:43] LABS: TOT PROT 6.4 g/dl (6.4-8.2)
[2021-11-26 11:44] LABS: BILIRUBIN,TOTAL 0.4 mg/dL (0.2-1)
[2021-11-26 21:35] VITALS: BP 146/65; PULSE 86; TEMP 97.2
[2021-11-26] MEDS: THIAMINE HCL 100 MG TABLET (FP) PO SCH (23:02)
[2021-11-26] MEDS: MELATONIN 5 MG TABLETS PO SCH (23:02)
[2021-11-27] MEDS: CLINDAMYCIN HCL 150 MG CAPSULE (FP) PO SCH (01:45)
[2021-11-27] MEDS ORDERED: chlordiazePOXIDE HCL 25 MG CAPSULE PO SCH (05:00)
[2021-11-27 16:17] LABS: SARS-CoV-2 NAA Not Detected (Not Detected)
[2021-11-28] MEDS ORDERED: chlordiazePOXIDE HCL 10 MG CAPSULE PO PRN
[2021-11-28] MEDS ORDERED: chlordiazePOXIDE HCL 10 MG CAPSULE PO SCH (05:00)
[2021-11-29] MEDS ORDERED: chlordiazePOXIDE HCL 10 MG CAPSULE PO SCH (05:00)
[2021-11-30] MEDS ORDERED: chlordiazePOXIDE HCL 10 MG CAPSULE PO ONE (05:00)
== END 2021-11-27 01:30 | disposition left against medical advice (07) | DRG 894 ==
LOC: YASAS 12:03 → Y3N 12:28
PROVIDERS: ADMIT Allergy & Immunology; ATTEND Allergy & Immunology
PROC: HZ2ZZZZ Detoxification Services for Substance Abuse Treatment (ICD-10-PCS; principal; 2021-11-25)
DX: F10.230 Alcohol dependence with withdrawal, uncomplicated (principal); F14.20 Cocaine dependence, uncomplicated; L03.115 Cellulitis of right lower limb; L03.116 Cellulitis of left lower limb; F17.210 Nicotine dependence, cigarettes, uncomplicated; F19.24 Other psychoactive substance dependence with psychoactive substance-induced mood disorder; F31.9 Bipolar disorder, unspecified; F90.9 Attention-deficit hyperactivity disorder, unspecified type; E78.5 Hyperlipidemia, unspecified; E11.65 Type 2 diabetes mellitus with hyperglycemia; Z79.84 Long term (current) use of oral hypoglycemic drugs; I10 Essential (primary) hypertension; E66.9 Obesity, unspecified; Z68.39 Body mass index [BMI] 39.0-39.9, adult; Z56.0 Unemployment, unspecified; Z59.00 Homelessness unspecified; Z88.0 Allergy status to penicillin; Z88.5 Allergy status to narcotic agent; Z91.19 Patient's noncompliance with other medical treatment and regimen
CPT/HCPCS: 0241U-QW; 36415; 80053; 82962; 85027; 86780; 87807; 87811; C9803-CS; U0003; U0005

== ENCOUNTER 2021-11-27 19:00 | Emergency (ER) | payer OTHER ==
[2021-11-27 19:22] VITALS: BP 128/44; PULSE 103; TEMP 97.8; BMI 39.7
[2021-11-27] MEDS ORDERED: SODIUM CHLORIDE 0.9% 500 ML INFUS.BAG IV ONE ×2 (20:59→22:13)
[2021-11-27 21:41] LABS: VENOUS BASE EXCESS -1.9 mmol/L (-2-2); VENOUS O2 SATURATION 88.7 % (70-80); VENOUS PCO2 38.6 mmHg (38-52); VENOUS PH 7.388 (7.310-7.410)
[2021-11-27 21:43] LABS: BASO % 0.3 % (0-2.0); EOS % 0.9 % (0-4.5); HEMATOCRIT 46.6 % (35.4-49); LYMPH % 27.3 % (8-40); MCH 27.6 pg (25.7-33.7); MCHC 32.3 g/dl (32.0-35.9); MEAN CELL VOLUME 85.5 fl (80-96); MEAN PLT VOLUME 8.3 fl (7.5-11.1); MONO % 8.7 % (3.8-10.2); NEUT % 62.8 % (42.8-82.8); PLATELET COUNT 218 10^3/uL (134-434); RBC 5.45 M/mm3 (4.00-5.60); WHITE BLOOD COUNT 7.3 K/mm3 (4.0-10.0)
[2021-11-27 21:59] LABS: CHLORIDE 95 mmol/L (98-107); SODIUM 131 mmol/L (136-145)
[2021-11-27 22:01] LABS: BLOOD UREA NITROGEN 11.6 mg/dL (7-18)
[2021-11-27 22:02] LABS: ALBUMIN 3.2 g/dl (3.4-5.0); ANION GAP 10 MMOL/L (8-16); CALCIUM 9.1 mg/dL (8.5-10.1); CO2 26 mmol/L (21-32)
[2021-11-27 22:05] LABS: CREATININE 1.1 mg/dL (0.55-1.3); SGOT/AST 24 U/L (15-37)
[2021-11-27 22:07] LABS: BILIRUBIN,TOTAL 0.3 mg/dL (0.2-1); TOT PROT 6.9 g/dl (6.4-8.2)
[2021-11-27 22:08] LABS: ALK PHOS 110 U/L (45-117)
[2021-11-27 22:39] LABS: GLUCOSE,RANDOM 505 mg/dL (74-106); SGPT/ALT 45 U/L (13-61)
[2021-11-27 22:57] LABS: EPI CELLS 9 /uL (0-25.1); HYALINE CASTS 0 /uL (0-3.1); URINE APPEARANCE CLEAR; URINE BACTERIA 1 /uL (0-1359); URINE BILIRUBIN NEGATIVE (NEGATIVE); URINE COLOR YELLOW; URINE GLUCOSE (UA) 3+ (NEGATIVE); URINE KETONE NEGATIVE (NEGATIVE); URINE LEUK ESTERASE NEGATIVE (NEGATIVE); URINE NITRITE NEGATIVE (NEGATIVE); URINE PROTEIN NEGATIVE (NEGATIVE); URINE RBC 6 /uL (0-23.9); URINE UROBILINOGEN 0.2 mg/dL (0.2-1.0); URINE WBC 2 /uL (0-25.8)
== END 2021-11-27 23:30 | disposition left against medical advice (07) ==
LOC: JERFT 19:00 → JER 19:00 → JERFT 23:30
DX: E11.65 Type 2 diabetes mellitus with hyperglycemia (principal)
CPT/HCPCS: 36415; 80053; 81003; 82803; 82962; 85025; 87086; 99284-25

== ENCOUNTER 2023-09-24 21:19 | Inpatient (IN) | payer OTHER ==
[2023-09-24 21:58] VITALS: BMI 39.4
[2023-09-24] MEDS ORDERED: ACETAMINOPHEN 325 MG TABLET (FP) PO PRN (22:27)
[2023-09-24] MEDS ORDERED: POLYETHYLENE GLYCOL (HEALTHYLAX) 3350 17 GM PACKET PO PRN (22:27)
[2023-09-24] MEDS ORDERED: IBUPROFEN 400 MG TABLET (FP) PO PRN (22:27)
[2023-09-24] MEDS ORDERED: MAG HYDROX/AL HYDROX/SIMETH 30 ML UNIT-DOSE CUP PO PRN (22:27)
[2023-09-24] MEDS ORDERED: BENZONATATE 200 MG CAPSULE PO PRN (22:27)
[2023-09-24] MEDS ORDERED: LOPERAMIDE HCL 2 MG CAPSULE PO PRN (22:27)
[2023-09-24] MEDS ORDERED: guaiFENesin 600 MG TABLET.ER (FP) PO PRN (22:27)
[2023-09-24] MEDS ORDERED: IBUPROFEN 600 MG TABLET (FP) PO PRN (22:27)
[2023-09-24] MEDS ORDERED: MAGNESIUM HYDROX 2400MG/30ML ORAL SUSPENSION 30 ML CUP PO PRN (22:27)
[2023-09-24] MEDS ORDERED: MELATONIN 5 MG TABLETS ONE (23:48)
[2023-09-24] MEDS: MELATONIN 5 MG TABLETS PO SCH (23:50)
[2023-09-24] MEDS: BENZOCAINE/MENTHOL (CHLORASEPTIC ) LOZENGE MM PRN (23:57)
[2023-09-25] MEDS ORDERED: INSULIN ASPART SLIDING SCALE (NOVOLOG) 1 VIAL SQ ONE ×2 (06:53→22:43)
[2023-09-25] MEDS: TUBERCULIN PPD 5 TU/0.1ML SYRINGE (IN PATIENT USE ONLY) ID ONE (07:00)
[2023-09-25] MEDS: INSULIN ASPART SLIDING SCALE (NOVOLOG) 1 VIAL SQ SCH (07:02)
[2023-09-25] MEDS: PRENATAL VITAMINS W/ FOLIC ACID TABLET (FP) PO SCH (11:30)
[2023-09-25] MEDS: FLU VACCINE (FLULAVAL) PF 60 MCG/0.5 ML SYRINGE 2023-2024 IM ONE (12:00)
[2023-09-25] MEDS: hydrOXYzine PAMOATE 25 MG CAPSULE (FP) PO PRN (16:26)
[2023-09-25] MEDS: NICOTINE POLACRILEX 2 MG GUM BUC PRN (17:23)
[2023-09-25 21:16] LABS: HIV INTERPRETATION NEGATIVE (NEGATIVE)
[2023-09-25] MEDS ORDERED: LITHIUM CARBONATE 300 MG CAPSULE PO SCH (22:00)
[2023-09-25] MEDS: INSULIN (NOVOLOG) ASPART 100 UNITS/ML 10ML VIAL SQ ONE (22:51)
[2023-09-25] MEDS: ZIPRASIDONE 20 MG CAPSULE PO SCH (22:57)
[2023-09-25] MEDS: THIAMINE HCL 100 MG TABLET (FP) PO SCH (22:59)
[2023-09-26 07:44] VITALS: BP 160/103; PULSE 67; RESP 17; TEMP 97
== END 2023-09-26 14:44 | disposition left against medical advice (07) | DRG 894 ==
LOC: YASAS 21:19 → Y3NR 09-25 01:26 → Y3W 09-25 11:11
PROVIDERS: ADMIT Allergy & Immunology; ATTEND Psychiatry & Neurology Pain Medicine
PROC: HZ42ZZZ Group Counseling for Substance Abuse Treatment, Cognitive-Behavioral (ICD-10-PCS; principal; 2023-09-25)
DX: F10.20 Alcohol dependence, uncomplicated (principal); F14.20 Cocaine dependence, uncomplicated; F16.20 Hallucinogen dependence, uncomplicated; Z59.02 Unsheltered homelessness; F17.210 Nicotine dependence, cigarettes, uncomplicated; F31.9 Bipolar disorder, unspecified; E78.5 Hyperlipidemia, unspecified; I10 Essential (primary) hypertension; K21.9 Gastro-esophageal reflux disease without esophagitis; E11.9 Type 2 diabetes mellitus without complications; Z79.84 Long term (current) use of oral hypoglycemic drugs; F91.8 Other conduct disorders; Z91.199 Patient's noncompliance with other medical treatment and regimen due to unspecified reason; Z88.0 Allergy status to penicillin; Z88.5 Allergy status to narcotic agent
CPT/HCPCS: 36415; 80178; 80305; 82962; 87389; 87635; 87811; 90686; 93005; 93010; G0008